=== PATIENT | female | born 1930 | race Caucasian/White ===

== ENCOUNTER 2017-01-05 18:30 | Inpatient (IN) | payer MEDICARE, OTHER ==
[~2017-01-05 18:30] MED LIST: Warfarin 2 MG Tab PO SCH
[2017-01-05] MEDS ORDERED: Albuterol/Ipratropium 3.0-0.5 MG/3 ML Neb Soln NEB ONE (19:02)
--- NOTE | 2017-01-05 19:14 | EDM.PDOC ---
ED HPI GENERAL MEDICAL PROBLEM - General Chief Complaint: General Stated Complaint: ILL Time Seen by Provider: 01/05/17 18:55 Source of Information: Reports: Patient, Family (SON AND DAUGHTER) - History of Present Illness INITIAL COMMENTS - FREE TEXT/NARRATIVE: PT DEVELOPED COUGH AND CHEST CONGESTION 2 DAYS AGO AND WAS SEEN IN [facility]. GIVEN ZPAK BUT SYMPTOMS BECOMING WORSE. DENIES CP, FEVER, N/V/D. Onset: Gradual Duration: Day(s): Location: Reports: Chest Severity: Mild Improves with: Reports: None Worsens with: Reports: None Associated Symptoms: Reports: Cough, Loss of Appetite, Shortness of Breath Treatments [employer]: Reports: IV/IO, Oxygen, See EMS Report - Related Data Allergies Allergy/AdvReac Type Severity Reaction Status Date / Time No Known Drug Allergies Allergy Cannot Verified 01/05/17 18:45 Remember Home Meds: Home Meds Citalopram Hydrobromide [Citalopram HBr] 30 mg PO DAILY 05/15/14 [History] Oxybutynin 5 mg PO BEDTIME 05/15/14 [History] Warfarin Sodium [Warfarin Sodium] 0.5 mg PO Q48H 05/15/14 [History] buPROPion HCl [Wellbutrin SR] 150 mg PO DAILY 05/15/14 [History] Acetaminophen [Tylenol] 650 mg PO Q4H PRN 09/05/15 [History] Aspirin 81 mg PO BEDTIME 09/05/15 [History] Calcium Carbonate/Vitamin D3 [Calcium 600 + Vit D3 Caplet] 1 each PO BID [History] Cholecalciferol (Vitamin D3) [Vitamin D3] 2,000 unit PO DAILY 09/05/15 [History] Docusate Sodium [Colace] 100 mg PO BEDTIME 09/05/15 [History] Multivitamin [Multivitamins] 1 each PO DAILY 09/05/15 [History] Omeprazole 20 mg PO DAILY 09/05/15 [History] Azithromycin [IJD: Azithromycin] 250 mg PO ASDIRECTED 01/05/17 [History] Lisinopril [Prinivil] 2.5 mg PO DAILY 01/05/17 [History] Metoprolol Succinate 25 mg PO DAILY 01/05/17 [History] Nortriptyline HCl [Pamelor] 100 mg PO BEDTIME 01/05/17 [History] Prednisone [IJD: predniSONE] 40 mg PO DAILY 01/05/17 [History] Warfarin Sodium [Coumadin] 4 mg PO BEDTIME 01/05/17 [History] guaiFENesin [Mucinex] 600 mg PO BID 01/05/17 [History] Past Medical History HEENT History: Reports: Impaired Vision Cardiovascular History: Reports: Afib, Hypertension Gastrointestinal History: Reports: GERD Genitourinary History: Reports: UTI, Recurrent Musculoskeletal History: Reports: Arthritis, Fracture Neurological History: Reports: Migraines Psychiatric History: Reports: Depression Hematologic History: Reports: Anticoagulation Therapy, Blood Transfusion(s) - Past Surgical History Female Surgical History: Reports: Hysterectomy, Salpingo-Oophorectomy Musculoskeletal Surgical History: Reports: Hip Replacement Social & Family History - Tobacco Use Smoking Status *Q: Never Smoker Second Hand Smoke Exposure: No - Caffeine Use Caffeine Use: Reports: Coffee, Tea Other Caffeine Use: 1-2 cups of coffee per day. diet coke not every day. iced tea - Alcohol Use Days Per Week of Alcohol Use: 0 - Recreational Drug Use Recreational Drug Use: No - Living Situation & Occupation Occupation: Retired ED ROS GENERAL - Review of Systems Review Of Systems: ROS reveals no pertinent complaints other than HPI. Constitutional: Reports: Weakness, Fatigue HEENT: Reports: No Symptoms Respiratory: Reports: Shortness of Breath, Wheezing, Cough Cardiovascular: Reports: No Symptoms Endocrine: Reports: No Symptoms GI/Abdominal: Reports: No Symptoms : Reports: No Symptoms Musculoskeletal: Reports: No Symptoms Skin: Reports: No Symptoms Neurological: Reports: No Symptoms Psychiatric: Reports: No Symptoms Hematologic/Lymphatic: Reports: No Symptoms Immunologic: Reports: No Symptoms ED EXAM, GENERAL - Physical Exam Exam: See Below Exam Limited By: No Limitations General Appearance: Alert, WD/WN, No Apparent Distress Eye Exam: Bilateral Eye: Normal Inspection Nose: Normal Inspection, Normal Mucosa, No Blood Throat/Mouth: Normal Inspection, Normal Oropharynx, Normal Voice, No Airway Compromise Head: Atraumatic, Normocephalic Neck: Normal Inspection, Supple Respiratory/Chest: No Respiratory Distress, Rales, Wheezing Cardiovascular: Regular Rate, Rhythm, No Murmur GI/Abdominal: Normal Bowel Sounds, Soft, Non-Tender Extremities: Normal Inspection, No Pedal Edema Neurological: Alert, Oriented, Normal Cognition Psychiatric: Normal Affect, Normal Mood Skin Exam: Warm, Dry, Intact, Normal Color, No Rash Course - Vital Signs Last Recorded V/S: Last Vital Signs Temp 98.6 F 01/05/17 18:42 Pulse 87 01/05/17 18:42 Resp 15 01/05/17 18:42 BP 123/59 L 01/05/17 18:42 Pulse Ox 99 01/05/17 18:42 - Orders/Labs/Meds Orders: Active Orders 24 hr Category Date Time Status Oxygen Therapy [RC] PRN Care 01/05/17 19:01 Ordered Peripheral IV Care [RC] . DIRECTED Care 01/05/17 19:02 Ordered Pulse Oximetry [RC] CONTINUOUS Care 01/05/17 19:01 Ordered RT Aerosol Therapy [RC] ASDIRECTED Care 01/05/17 19:02 Ordered Chest 2V [CR] Stat Exams 01/05/17 19:00 Ordered B-TYPE NATRIURETIC PEPTIDE,BNP [CHEM] Stat Lab 01/05/17 19:00 Ordered CBC WITH AUTO DIFF [HEME] Stat Lab 01/05/17 19:00 Ordered COMPREHENSIVE METABOLIC PN,CMP [CHEM] Stat Lab 01/05/17 19:00 Ordered UA W/MICROSCOPIC [URIN] Stat Lab 01/05/17 19:01 Uncollected Albuterol/Ipratropium [DuoNeb 3.0-0.5 MG/3 ML] Med 01/05/17 19:02 Once 3 ml NEB ONETIME ONE Sodium Chloride 0.9% [Syrex Flush] Med 01/05/17 19:00 Ordered 5 ml FLUSH Q8HR PRN Peripheral IV Insertion Adult [OM.PC] Urgent Oth 01/05/17 19:00 Ordered - Re-Assessments/Exams Free Text/Narrative Re-Assessment/Exam: 01/05/17 20:57 PT AFEBRILE, NONTOXIC APPEARING, VSS, FAMILY AT BEDSIDE. DISCUSSED CASE WITH DR VARGAS, WILL ADMIT AND FOLLOW Free Text/Narrative Re-Assessment/Exam: 01/05/17 20:58 PLEASE USE ER H&P ADMISSION H&P Departure - Departure Time of Disposition: 20:57 Disposition: Refer to Observation Condition: Fair Clinical Impression: Pneumonia - Discharge Information Referrals: Gini Hedrick MD [Primary Care Provider] - - My Orders Last 24 Hours: My Active Orders 01/05/17 19:00 Chest 2V [CR] Stat B-TYPE NATRIURETIC PEPTIDE,BNP [CHEM] Stat CBC WITH AUTO DIFF [HEME] Stat COMPREHENSIVE METABOLIC PN,CMP [CHEM] Stat Sodium Chloride 0.9% [Syrex Flush] 5 ml FLUSH Q8HR PRN Peripheral IV Insertion Adult [OM.PC] Urgent 01/05/17 19:01 Oxygen Therapy [RC] PRN Pulse Oximetry [RC] CONTINUOUS UA W/MICROSCOPIC [URIN] Stat 01/05/17 19:02 Peripheral IV Care [RC] . DIRECTED RT Aerosol Therapy [RC] ASDIRECTED Albuterol/Ipratropium [DuoNeb 3.0-0.5 MG/3 ML] 3 ml NEB ONETIME ONE - Assessment/Plan Admission H&P: Please use this note as an admission H&P Last 24 Hours: My Active Orders 01/05/17 19:00 Chest 2V [CR] Stat B-TYPE NATRIURETIC PEPTIDE,BNP [CHEM] Stat CBC WITH AUTO DIFF [HEME] Stat COMPREHENSIVE METABOLIC PN,CMP [CHEM] Stat Sodium Chloride 0.9% [Syrex Flush] 5 ml FLUSH Q8HR PRN Peripheral IV Insertion Adult [OM.PC] Urgent 01/05/17 19:01 Oxygen Therapy [RC] PRN Pulse Oximetry [RC] CONTINUOUS UA W/MICROSCOPIC [URIN] Stat 01/05/17 19:02 Peripheral IV Care [RC] . DIRECTED RT Aerosol Therapy [RC] ASDIRECTED Albuterol/Ipratropium [DuoNeb 3.0-0.5 MG/3 ML] 3 ml NEB ONETIME ONE
[2017-01-05] MEDS ORDERED: cefTRIAXone 1 GM Vial IVPUSH ONE (20:36)
[2017-01-05] MEDS ORDERED: Sodium Chloride 0.9% 5 ML Syringe FLUSH PRN (20:44)
[2017-01-05] MEDS ORDERED: Furosemide 40 MG/4 ML VIAL IVPUSH ONE (20:53)
[2017-01-05] MEDS ORDERED: AZITHROMYCIN 250 MG PO SCH (21:00)
[2017-01-05] MEDS ORDERED: WARFARIN SODIUM PO SCH (21:00)
[2017-01-05] MEDS ORDERED: Non-Formulary Medication 1 Each (Warfarin Sodium 4 MG) PO SCH (21:00)
[2017-01-05] MEDS ORDERED: NORTRIPTYLINE HCL 100 MG PO SCH (21:00)
[2017-01-05] MEDS ORDERED: Non-Formulary Medication 1 Each (Guaifenesin [Mucinex] 600 MG) PO SCH (21:00)
[2017-01-05] MEDS: Sodium Chloride 0.9% 5 ML Syringe FLUSH PRN (21:21)
[2017-01-05] MEDS: Aspirin 81 MG Tab.Chew PO SCH (21:55)
[2017-01-05] MEDS: Oxybutynin 5 MG Tab PO SCH (21:56)
[2017-01-06] MEDS: Sodium Chloride 0.9% 5 ML Syringe FLUSH PRN (07:01)
[2017-01-06] MEDS: Albuterol/Ipratropium 3.0-0.5 MG/3 ML Neb Soln NEB PRN ×3 (08:29→18:39)
[2017-01-06] MEDS ORDERED: cefTRIAXone 1 GM in Sodium Chloride 0.9% 50 ML IV SCH (09:00)
[2017-01-06] MEDS ORDERED: AZITHROMYCIN 250 MG PO SCH (09:00)
--- NOTE | 2017-01-06 09:11 | PCM.PN ---
- General Info Date of Service: 01/06/17 Admission Dx/Problem (Free Text): Pneumonia Subjective Update: Moose is seen today on observation rounds. She was admitted last evening for presumed pneumonia based on clinical exam findings, CXR was reported as negative. She and her family (daughter Margo and son Nicanor) are present this morning and offer some supplemental history. She developed SOB and cough on 12/29. She progressively got worse and saw her PCP and was started on a Z-cedrick on 01/04/17. She came to the ER last evening (01/05/17) due to worsening cough and SOB. In the ER her O2 sats were OK but she had crackles and wheezing on exam as well as a WBC of 15.5. She had been given prednisone 40 mg PO daily to take on 01/04 from her PCP but she did not take them. She has been on no prednisone. She has been afebrile. She had a UA done in the ER last night which was done by catheterization and shows some blood. She is on warfarin due to a-fib. Her daughter notes that she had fallen a few times in the past couple of days due to weakness with this illness. She did not hit her head, but when her daughter did give her a sponge bath the evening on 01/04 she noticed she had some blood in her depend she wears. This was presumably from her urine, no hx of dark tarry stool. She was given rocephin in the ER, she continued on her home azithromycin dose and was admitted for treatment of pneumonia. This morning she feels "OK". I note she looks flushed but has not been running a fever. She does endorse SOB. She has not felt thirsty or been eating much. She did get lasix 20 mg IV in the ER due to slightly elevated BNP and "wet" sounding lungs. She was not started on IVF's. She denies any pain. - Patient Data Vitals - Most Recent: Last Vital Signs Temp 97.9 F 01/06/17 07:00 Pulse 95 01/06/17 07:00 Resp 16 01/06/17 07:00 BP 112/57 L 01/06/17 07:00 Pulse Ox 92 L 01/06/17 07:00 Weight - Most Recent: 189 lb 4 oz I&O - Last 24 Hours: Intake & Output 01/05/17 01/06/17 01/06/17 22:59 06:59 14:59 Intake Total 100 50 Balance 100 50 Med Orders - Current: Current Medications Acetaminophen (Tylenol) 650 mg PO Q4H PRN PRN Reason: Pain Albuterol/Ipratropium (Duoneb 3.0-0.5 Mg/3 Ml) 3 ml NEB Q4HRRT PRN PRN Reason: Shortness of Breath Last Admin: 01/06/17 08:29 Dose: 3 ml Aspirin (Aspirin) 81 mg PO BEDTIME FERNANDA Last Admin: 01/05/17 21:55 Dose: 81 mg Bupropion HCl (Wellbutrin Sr) 150 mg PO DAILY [facility] Citalopram Hydrobromide (Celexa) 30 mg PO DAILY [facility] Docusate Sodium (Colace) 100 mg PO BEDTIME FERNANDA Guaifenesin (Mucinex) 600 mg PO BID [facility] Azithromycin 500 mg/ Sodium (Chloride) 250 mls @ 250 mls/hr IV Q24H FERNANDA Ceftriaxone Sodium 1 gm/ (Sodium Chloride) 50 mls @ 200 mls/hr IV Q24H FERNANDA Lisinopril (Prinivil) 2.5 mg PO DAILY FERNANDA Metoprolol Succinate (Toprol Xl) 25 mg PO DAILY [facility] Non-Formulary Medication (Calcium Carbonate/Vitamin D3 [Calcium 600-Vit D3 800 Caplet]) 1 each PO BID [facility] Non-Formulary Medication (Cholecalciferol (Vitamin D3) [Vitamin D3]) 2,000 unit PO DAILY [facility] Non-Formulary Medication (Multivitamin [Multivitamins]) 1 each PO DAILY [facility] Non-Formulary Medication (Omeprazole [Omeprazole]) 20 mg PO DAILY [facility] Nortriptyline HCl (Nortriptyline) 100 mg PO BEDTIME FERNANDA Oxybutynin Chloride (Oxybutynin) 5 mg PO BEDTIME [facility] Last Admin: 01/05/17 21:56 Dose: 5 mg Ptom Azithromycin 250 Mg Tab 1 each PO DAILY FERNANDA Stop: 01/08/17 09:01 Prednisone (Prednisone) 40 mg PO DAILY [facility] Sodium Chloride (Syrex Flush) 5 ml FLUSH Q8HR PRN PRN Reason: Keep Vein Open Last Admin: 01/06/17 07:01 Dose: 5 ml Warfarin Sodium (Coumadin) 4 mg PO DAILY@1800 FERNANDA Warfarin Sodium (Coumadin) 0.5 mg PO Q48H [facility] Discontinued Medications Albuterol/Ipratropium (Duoneb 3.0-0.5 Mg/3 Ml) 3 ml NEB ONETIME ONE Stop: 01/05/17 19:03 Last Admin: 01/05/17 19:10 Dose: 3 ml Ceftriaxone Sodium (Rocephin) 1 gm IVPUSH ONETIME ONE Stop: 01/05/17 20:37 Last Admin: 01/05/17 21:10 Dose: 1 gm Furosemide (Lasix) 20 mg IVPUSH NOW ONE Stop: 01/05/17 20:54 Last Admin: 01/05/17 21:10 Dose: 20 mg Non-Formulary Medication (Azithromycin [Ijd: Azithromycin]) 250 mg PO ASDIRECTED [facility] Non-Formulary Medication (Guaifenesin [Mucinex]) 600 mg PO BID [facility] Last Admin: 01/05/17 21:55 Dose: Not Given Non-Formulary Medication (Nortriptyline Hcl [Pamelor]) 100 mg PO BEDTIME [facility] Last Admin: 01/05/17 21:56 Dose: Not Given Non-Formulary Medication (Warfarin Sodium) 4 mg PO BEDTIME [facility] Last Admin: 01/05/17 21:57 Dose: 4 mg Non-Formulary Medication (Warfarin Sodium) 0.5 mg PO Q48H [facility] Last Admin: 01/05/17 21:57 Dose: 0.5 mg Sodium Chloride (Syrex Flush) 5 ml FLUSH Q8HR PRN PRN Reason: Keep Vein Open - Exam General: Alert, Oriented, Cooperative, No Acute Distress Lungs: Crackles, Wheezing Cardiovascular: Irregular Rhythm, Murmurs (2/6 systolic murmur heard best at the RUSB.) GI/Abdominal Exam: Normal Bowel Sounds, Soft, Non-Tender, No Organomegaly Back Exam: Normal Inspection Extremities: No Pedal Edema - Problem List & Annotations (1) Atrial fibrillation SNOMED Code(s): 47842364 Code(s): I48.91 - UNSPECIFIED ATRIAL FIBRILLATION Status: Acute Current Visit: Yes (2) Pneumonia SNOMED Code(s): 095754919 Code(s): J18.9 - PNEUMONIA, UNSPECIFIED ORGANISM Status: Acute Current Visit: Yes (3) CHF (congestive heart failure) SNOMED Code(s): 67053346 Code(s): I50.9 - HEART FAILURE, UNSPECIFIED Status: Chronic Current Visit : No Qualifiers: Congestive heart failure type: unspecified congestive heart failure type Congestive heart failure chronicity: unspecified congestive heart failure chronicity Qualified Code(s): I50.9 - Heart failure, unspecified (4) Depression SNOMED Code(s): 12827166 Code(s): F32.9 - MAJOR DEPRESSIVE DISORDER, SINGLE EPISODE, UNSPECIFIED Status: Acute Current Visit: Yes (5) Hypertension SNOMED Code(s): 91307670 Code(s): I10 - ESSENTIAL (PRIMARY) HYPERTENSION Status: Acute Current Visit: Yes (6) Overactive bladder SNOMED Code(s): 394393520 Code(s): N32.81 - OVERACTIVE BLADDER Status: Acute Current Visit: Yes - Problem List Review Problem List Initiated/Reviewed/Updated: Yes - My Orders Last 24 Hours: My Active Orders 01/05/17 22:37 Albuterol/Ipratropium [DuoNeb 3.0-0.5 MG/3 ML] 3 ml NEB Q4HRRT PRN 01/05/17 22:38 RT Aerosol Therapy [RC] ASDIRECTED 01/06/17 08:25 B-TYPE NATRIURETIC PEPTIDE,BNP [CHEM] Routine BASIC METABOLIC PANEL,BMP [CHEM] Routine CBC WITH AUTO DIFF [HEME] Routine 01/06/17 08:35 Acetaminophen [Tylenol] 650 mg PO Q4H PRN 01/06/17 08:52 Patient Status [ADT] Routine 01/06/17 08:54 CULTURE BLOOD [BC] Stat CULTURE BLOOD [BC] Stat INR,PT,PROTHROMBIN TIME [COAG] Routine Blood Culture x2 Reflex Set [OM.PC] Stat 01/06/17 09:00 Azithromycin [Zithromax] 500 mg Sodium Chloride 0.9% [Normal Saline] 250 ml IV Q24H Calcium Carbonate/Vitamin D3 [Calcium 600-Vit D3 800 Caplet] 1 each PO BID Cholecalciferol (Vitamin D3) [Vitamin D3] 2,000 unit PO DAILY Multivitamin [Multivitamins] 1 each PO DAILY Omeprazole [Omeprazole] 20 mg PO DAILY cefTRIAXone [Rocephin] 1 gm Sodium Chloride 0.9% [Normal Saline] 50 ml IV Q24H predniSONE 40 mg PO DAILY 01/06/17 21:00 Docusate Sodium [Colace] 100 mg PO BEDTIME - Assessment Assessment:: Pneumonia CHF Atrial fibrillation, on warfarin Hematuria HTN OAB Depression - Plan Plan:: Pneumonia. Azithromycin 500 mg IV daily as well as ceftriaxone 1 gram IV daily. Will use nebs and also start the prednisone 40 mg PO daily x 5 days. Blood cultures not obtained in ED and so those will be done today. Will also get daily CBC and BMP. CHF. She got lasix in the ER, will check BNP today. Additional lasix PRN. Atrial fibrillation, on warfarin. Continue warfarin. INR today. Hematuria. Will monitor, could be due to fall as well as catheterization. If not improving will need outpatient follow-up. HTN. Continue home meds. OAB. Continue home meds. Depression. Continue home meds.
[2017-01-06] MEDS: buPROPion 150 MG Tab.SR PO SCH (09:29)
[2017-01-06] MEDS: Citalopram 20 MG Tab PO SCH (09:29)
[2017-01-06] MEDS: Lisinopril 5 MG Tab PO SCH (09:33)
[2017-01-06] MEDS: Metoprolol Succinate 25 MG Tab.ER PO SCH (09:33)
[2017-01-06] MEDS: guaiFENesin 600 MG Tab.ER PO SCH ×2 (10:10→21:06)
[2017-01-06] MEDS: Cholecalciferol (Vitamin D3) 1,000 Unit Tab PO SCH (10:11)
[2017-01-06] MEDS: PREDNISONE 20 MG PO SCH (10:11)
[2017-01-06] MEDS: Calcium Citrate/Vitamin D3 315 MG-250 Unit Tab PO SCH ×2 (10:11→18:19)
[2017-01-06] MEDS: Azithromycin 500 MG in Sodium Chloride 0.9% 250 ML IV SCH (10:11)
[2017-01-06] MEDS: Multivitamins with Minerals/Iron/Folic Acid/Lycopene Tab PO SCH (10:11)
[2017-01-06] MEDS: Sodium Chloride 0.9% 50 ML IV SCH (10:20)
[2017-01-06] MEDS: Omeprazole 20 MG Cap.CR PO SCH (11:07)
[2017-01-06] MEDS: Acetaminophen 325 MG Tab PO PRN (13:25)
[2017-01-06] MEDS: cefTRIAXone 1 GM Vial IVPUSH SCH (21:04)
[2017-01-06] MEDS: Aspirin 81 MG Tab.Chew PO SCH (21:05)
[2017-01-06] MEDS: Donepezil 10 MG Tab PO SCH (21:05)
[2017-01-06] MEDS: Docusate Sodium 100 MG Cap PO SCH (21:06)
[2017-01-06] MEDS: NORTRIPTYLINE 50 MG PO SCH (21:07)
[2017-01-06] MEDS: Oxybutynin 5 MG Tab PO SCH (21:07)
[2017-01-07] MEDS: Calcium Citrate/Vitamin D3 315 MG-250 Unit Tab PO SCH ×2 (08:51→18:36)
[2017-01-07] MEDS: Omeprazole 20 MG Cap.CR PO SCH (08:51)
[2017-01-07] MEDS: PREDNISONE 20 MG PO SCH (08:51)
[2017-01-07] MEDS: Citalopram 20 MG Tab PO SCH (08:52)
[2017-01-07] MEDS: Multivitamins with Minerals/Iron/Folic Acid/Lycopene Tab PO SCH (08:54)
[2017-01-07] MEDS: Cholecalciferol (Vitamin D3) 1,000 Unit Tab PO SCH (08:56)
[2017-01-07] MEDS: buPROPion 150 MG Tab.SR PO SCH (08:56)
[2017-01-07] MEDS: Lisinopril 5 MG Tab PO SCH (08:58)
[2017-01-07] MEDS: guaiFENesin 600 MG Tab.ER PO SCH ×2 (09:01→20:11)
[2017-01-07] MEDS: Sodium Chloride 0.9% 50 ML IV SCH (09:26)
[2017-01-07] MEDS: Azithromycin 500 MG in Sodium Chloride 0.9% 250 ML IV SCH (09:26)
--- NOTE | 2017-01-07 09:47 | PCM.PN ---
- General Info Date of Service: 01/07/17 Admission Dx/Problem (Free Text): Pneumonia - Review of Systems Systems Review Comment:: Moose is seen today on inpatient rounds. She was admitted on 01/05/17 with probable pneumonia based on clinical exam findings, CXR was negative. She had an elevated WBC with cough, wheezing and rales on examination. She was started in the hospital on ceftriaxone and azithromycin IV. She states today she feels quite a bit better. VSS, afebrile. She has no concerns today, no concerns noted by nursing staff. - Patient Data Vitals - Most Recent: Last Vital Signs Temp 97.2 F 01/07/17 06:33 Pulse 80 01/07/17 06:33 Resp 20 01/07/17 06:33 BP 99/59 L 01/07/17 08:58 Pulse Ox 97 01/07/17 06:33 Weight - Most Recent: 189 lb 4 oz I&O - Last 24 Hours: Intake & Output 01/06/17 01/07/17 01/07/17 22:59 06:59 14:59 Intake Total 50 0 Balance 50 0 Lab Results Last 24 Hours: Laboratory Results - last 24 hr 01/06/17 01/06/17 01/07/17 Range/Units 09:00 10:00 07:04 WBC 7.5 (5.0-10.0) 10^3/uL RBC 3.55 L (3.80-5.50) 10^6/uL Hgb 10.3 L (12.0-16.0) g/dL Hct 31.0 L (37.0-47.0) % MCV 87.3 (82.0-92.0) fL MCH 29.1 (27.0-31.0) pg MCHC 33.3 (32.0-36.0) g/dL RDW 12.4 (11.5-14.5) % Plt Count 193 (150-300) 10^3/uL MPV 7.7 (7.4-10.4) fL Neut % (Auto) 78.1 H (50.0-70.0) % Lymph % (Auto) 15.9 L (20.0-40.0) % [place] % (Auto) 5.1 (2.0-8.0) % Eos % (Auto) 0.6 L (1.0-3.0) % Baso % (Auto) 0.3 (0.0-1.0) % Neut # (Auto) 5.9 (2.5-7.0) 10^3/uL Lymph # (Auto) 1.2 (1.0-4.0) 10^3/uL [place] # (Auto) 0.4 (0.1-0.8) 10^3/uL Eos # (Auto) 0.0 L (0.1-0.3) 10^3/uL Baso # (Auto) 0.0 (0.0-0.1) 10^3/uL PT 53.5 H (8.9-11.4) SEC INR 4.9 H* (0.9-1.1) Sodium 138 (136-145) mmol/L Potassium 4.4 (3.3-5.3) mmol/L Chloride 102 (98-115) mmol/L Carbon Dioxide 24.5 (21.0-32.0) mmol/L BUN 24 (6-25) mg/dL Creatinine 1.58 H (0.51-1.17) mg/dL Est Cr Clr Drug Dosing 26.74 mL/min Estimated GFR (MDRD) 31 mL/min Glucose 143 H (70-110) mg/dL Calcium 8.4 L (8.7-10.3) mg/dL B-Natriuretic Peptide 141 H (0-100) pg/mL 01/07/17 Range/Units 07:04 WBC (5.0-10.0) 10^3/uL RBC (3.80-5.50) 10^6/uL Hgb (12.0-16.0) g/dL Hct (37.0-47.0) % MCV (82.0-92.0) fL MCH (27.0-31.0) pg MCHC (32.0-36.0) g/dL RDW (11.5-14.5) % Plt Count (150-300) 10^3/uL MPV (7.4-10.4) fL Neut % (Auto) (50.0-70.0) % Lymph % (Auto) (20.0-40.0) % [place] % (Auto) (2.0-8.0) % Eos % (Auto) (1.0-3.0) % Baso % (Auto) (0.0-1.0) % Neut # (Auto) (2.5-7.0) 10^3/uL Lymph # (Auto) (1.0-4.0) 10^3/uL [place] # (Auto) (0.1-0.8) 10^3/uL Eos # (Auto) (0.1-0.3) 10^3/uL Baso # (Auto) (0.0-0.1) 10^3/uL PT (8.9-11.4) SEC INR (0.9-1.1) Sodium 136 (136-145) mmol/L Potassium 4.4 (3.3-5.3) mmol/L Chloride 102 (98-115) mmol/L Carbon Dioxide 24.3 (21.0-32.0) mmol/L BUN 23 (6-25) mg/dL Creatinine 1.23 H (0.51-1.17) mg/dL Est Cr Clr Drug Dosing 34.35 mL/min Estimated GFR (MDRD) 42 mL/min Glucose 101 (70-110) mg/dL Calcium 8.6 L (8.7-10.3) mg/dL B-Natriuretic Peptide (0-100) pg/mL Med Orders - Current: Current Medications Acetaminophen (Tylenol) 650 mg PO Q4H PRN PRN Reason: Pain Last Admin: 01/06/17 13:25 Dose: 650 mg Albuterol/Ipratropium (Duoneb 3.0-0.5 Mg/3 Ml) 3 ml NEB Q4HRRT PRN PRN Reason: Shortness of Breath Last Admin: 01/06/17 18:39 Dose: 3 ml Aspirin (Aspirin) 81 mg PO BEDTIME [facility] Last Admin: 01/06/17 21:05 Dose: 81 mg Bupropion HCl (Wellbutrin Sr) 150 mg PO DAILY [facility] Last Admin: 01/07/17 08:56 Dose: 150 mg Calcium Citrate (Calcium Citrate + D) 1 tab PO BIDMEALS [facility] Last Admin: 01/07/17 08:51 Dose: 1 tab Ceftriaxone Sodium (Rocephin) 1 gm IVPUSH Q24H [facility] Last Admin: 01/06/17 21:04 Dose: 1 gm Cholecalciferol (Vitamin D3) 2,000 units PO DAILY [facility] Last Admin: 01/07/17 08:56 Dose: 2,000 units Citalopram Hydrobromide (Celexa) 30 mg PO DAILY [facility] Last Admin: 01/07/17 08:52 Dose: 30 mg Docusate Sodium (Colace) 100 mg PO BEDTIME [facility] Last Admin: 01/06/17 21:06 Dose: 100 mg Donepezil HCl (Aricept) 10 mg PO BEDTIME [facility] Last Admin: 01/06/17 21:05 Dose: 10 mg Guaifenesin (Mucinex) 600 mg PO BID [facility] Last Admin: 01/07/17 09:01 Dose: 600 mg Azithromycin 500 mg/ Sodium (Chloride) 255 mls @ 255 mls/hr IV Q24H [facility] Last Admin: 01/07/17 09:26 Dose: 255 mls/hr Sodium Chloride (Normal Saline) 50 mls @ 20 mls/hr IV DAILY [facility] Last Admin: 01/07/17 09:26 Dose: 20 mls/hr Lisinopril (Prinivil) 2.5 mg PO DAILY [facility] Last Admin: 01/07/17 08:58 Dose: 2.5 mg Metoprolol Succinate (Toprol Xl) 25 mg PO DAILY [facility] Last Admin: 01/06/17 09:33 Dose: 25 mg Multivitamins/Minerals (Centrum) 1 tab PO DAILY [facility] Last Admin: 01/07/17 08:54 Dose: 1 tab Omeprazole (Omeprazole) 20 mg PO ACBREAKFAST [facility] Last Admin: 01/07/17 08:51 Dose: 20 mg Oxybutynin Chloride (Oxybutynin) 5 mg PO BEDTIME [facility] Last Admin: 01/06/17 21:07 Dose: 5 mg Ptom Nortriptyline 50 Mg Cap 2 each PO BEDTIME [facility] Last Admin: 01/06/17 21:07 Dose: 2 each Ptom Prednisone (20 Mg Tab) 2 each PO WITHBREAKFAST [facility] Stop: 01/10/17 10:01 Last Admin: 01/07/17 08:51 Dose: 2 each Sodium Chloride (Syrex Flush) 5 ml FLUSH Q8HR PRN PRN Reason: Keep Vein Open Last Admin: 01/06/17 07:01 Dose: 5 ml Warfarin Sodium (Coumadin) 4 mg PO DAILY@1800 [facility] Last Admin: 01/06/17 09:15 Dose: Not Given Warfarin Sodium (Coumadin) 0.5 mg PO Q48H [facility] Last Admin: 01/06/17 09:15 Dose: Not Given Warfarin Sodium (Pharmacy To Dose - Warfarin) 0 dose PO ASDIRECTED [facility] Discontinued Medications Albuterol/Ipratropium (Duoneb 3.0-0.5 Mg/3 Ml) 3 ml NEB ONETIME ONE Stop: 01/05/17 19:03 Last Admin: 01/05/17 19:10 Dose: 3 ml Ceftriaxone Sodium (Rocephin) 1 gm IVPUSH ONETIME ONE Stop: 01/05/17 20:37 Last Admin: 01/05/17 21:10 Dose: 1 gm Furosemide (Lasix) 20 mg IVPUSH NOW ONE Stop: 01/05/17 20:54 Last Admin: 01/05/17 21:10 Dose: 20 mg Non-Formulary Medication (Azithromycin [Ijd: Azithromycin]) 250 mg PO ASDIRECTED [facility] Non-Formulary Medication (Guaifenesin [Mucinex]) 600 mg PO BID [facility] Last Admin: 01/05/17 21:55 Dose: Not Given Non-Formulary Medication (Nortriptyline Hcl [Pamelor]) 100 mg PO BEDTIME [facility] Last Admin: 01/05/17 21:56 Dose: Not Given Non-Formulary Medication (Warfarin Sodium) 4 mg PO BEDTIME [facility] Last Admin: 01/05/17 21:57 Dose: 4 mg Non-Formulary Medication (Warfarin Sodium) 0.5 mg PO Q48H [facility] Last Admin: 01/05/17 21:57 Dose: 0.5 mg Ptom Azithromycin 250 Mg Tab 1 each PO DAILY [facility] Stop: 01/08/17 09:01 Last Admin: 01/06/17 10:18 Dose: Not Given Sodium Chloride (Syrex Flush) 5 ml FLUSH Q8HR PRN PRN Reason: Keep Vein Open - Exam General: Alert, Oriented, Cooperative, No Acute Distress Lungs: Crackles (Bibasilar crackles, wheezing has improved and is absent today.) Cardiovascular: Irregular Rhythm, Murmurs GI/Abdominal Exam: Normal Bowel Sounds Extremities: No Pedal Edema - Problem List & Annotations (1) Atrial fibrillation SNOMED Code(s): 15044119 Code(s): I48.91 - UNSPECIFIED ATRIAL FIBRILLATION Status: Acute Current Visit: Yes (2) Pneumonia SNOMED Code(s): 424282487 Code(s): J18.9 - PNEUMONIA, UNSPECIFIED ORGANISM Status: Acute Current Visit: Yes (3) CHF (congestive heart failure) SNOMED Code(s): 87160628 Code(s): I50.9 - HEART FAILURE, UNSPECIFIED Status: Chronic Current Visit : No Qualifiers: Congestive heart failure type: unspecified congestive heart failure type Congestive heart failure chronicity: unspecified congestive heart failure chronicity Qualified Code(s): I50.9 - Heart failure, unspecified (4) Depression SNOMED Code(s): 37502738 Code(s): F32.9 - MAJOR DEPRESSIVE DISORDER, SINGLE EPISODE, UNSPECIFIED Status: Acute Current Visit: Yes (5) Hypertension SNOMED Code(s): 87402482 Code(s): I10 - ESSENTIAL (PRIMARY) HYPERTENSION Status: Acute Current Visit: Yes (6) Overactive bladder SNOMED Code(s): 622676525 Code(s): N32.81 - OVERACTIVE BLADDER Status: Acute Current Visit: Yes - Problem List Review Problem List Initiated/Reviewed/Updated: Yes - My Orders Last 24 Hours: My Active Orders 01/06/17 08:52 Patient Status [ADT] Routine 01/06/17 08:54 Blood Culture x2 Reflex Set [OM.PC] Stat 01/06/17 09:00 Azithromycin [Zithromax] 500 mg Sodium Chloride 0.9% [Normal Saline] 250 ml IV Q24H Sodium Chloride 0.9% [Normal Saline] 50 ml IV DAILY 01/06/17 09:45 CULTURE BLOOD [BC] Stat 01/06/17 10:00 CULTURE BLOOD [BC] Stat 01/06/17 11:30 Warfarin Pharmacy to Dose [Pharmacy to Dose - Warfarin] 0 dose PO ASDIRECTED 01/06/17 20:00 cefTRIAXone [Rocephin] 1 gm IVPUSH Q24H 01/06/17 21:00 Donepezil [Aricept] 10 mg PO BEDTIME 01/08/17 05:11 BMP [BASIC METABOLIC PANEL,BMP] [CHEM] AM CBC WITH AUTO DIFF [HEME] AM 01/08/17 06:00 INR,PT,PROTHROMBIN TIME [COAG] Routine 01/09/17 05:11 BMP [BASIC METABOLIC PANEL,BMP] [CHEM] AM CBC WITH AUTO DIFF [HEME] AM 01/10/17 05:11 BMP [BASIC METABOLIC PANEL,BMP] [CHEM] AM CBC WITH AUTO DIFF [HEME] AM 01/11/17 05:11 BMP [BASIC METABOLIC PANEL,BMP] [CHEM] AM CBC WITH AUTO DIFF [HEME] AM - Assessment Assessment:: Pneumonia CHF Atrial fibrillation, on warfarin Hematuria HTN OAB Depression - Plan Plan:: Pneumonia. Azithromycin 500 mg IV daily as well as ceftriaxone 1 gram IV daily. Will use nebs and also start the prednisone 40 mg PO daily x 5 days. Will also get daily CBC and BMP. CHF. She got lasix in the ER. Additional lasix PRN. Atrial fibrillation, on warfarin. This is being held due to supratherapeutic INR. Pharmacy dosing warfarin. Hematuria. Will monitor, could be due to fall as well as catheterization. If not improving will need outpatient follow-up. HTN. Continue home meds. OAB. Continue home meds. Depression. Continue home meds.
[2017-01-07] MEDS: Metoprolol Succinate 25 MG Tab.ER PO SCH (12:45)
[2017-01-07] MEDS: cefTRIAXone 1 GM Vial IVPUSH SCH (20:11)
[2017-01-07] MEDS: Donepezil 10 MG Tab PO SCH (21:34)
[2017-01-07] MEDS: Aspirin 81 MG Tab.Chew PO SCH (21:34)
[2017-01-07] MEDS: Docusate Sodium 100 MG Cap PO SCH (21:35)
[2017-01-07] MEDS: Oxybutynin 5 MG Tab PO SCH (21:35)
[2017-01-07] MEDS: NORTRIPTYLINE 50 MG PO SCH (21:36)
[2017-01-07] MEDS: Sodium Chloride 0.9% 5 ML Syringe FLUSH PRN (21:37)
[2017-01-07] MEDS ORDERED: Magnesium Hydroxide 400 MG/5 ML Susp 30 ML Cup PO PRN (21:43)
[2017-01-08] MEDS: Omeprazole 20 MG Cap.CR PO SCH (08:03)
[2017-01-08] MEDS: Calcium Citrate/Vitamin D3 315 MG-250 Unit Tab PO SCH ×2 (08:03→18:02)
[2017-01-08] MEDS: PREDNISONE 20 MG PO SCH (08:04)
[2017-01-08] MEDS: Azithromycin 500 MG in Sodium Chloride 0.9% 250 ML IV SCH (08:55)
[2017-01-08] MEDS: Sodium Chloride 0.9% 50 ML IV SCH (08:55)
[2017-01-08] MEDS: Citalopram 20 MG Tab PO SCH (09:05)
[2017-01-08] MEDS: guaiFENesin 600 MG Tab.ER PO SCH ×2 (09:05→20:09)
[2017-01-08] MEDS: Multivitamins with Minerals/Iron/Folic Acid/Lycopene Tab PO SCH (09:06)
[2017-01-08] MEDS: Cholecalciferol (Vitamin D3) 1,000 Unit Tab PO SCH (09:06)
[2017-01-08] MEDS: Metoprolol Succinate 25 MG Tab.ER PO SCH (09:07)
[2017-01-08] MEDS: Lisinopril 5 MG Tab PO SCH (09:07)
[2017-01-08] MEDS: buPROPion 150 MG Tab.SR PO SCH (09:08)
--- NOTE | 2017-01-08 14:19 | PCM.PN ---
- General Info Date of Service: 01/08/17 Admission Dx/Problem (Free Text): Pneumonia - Review of Systems Systems Review Comment:: Moose is seen today on inpatient rounds. She was admitted for presumed pneumonia based on physical exam findings and symptoms. CXR was negative. She has had a bowel movement this morning per nursing, Moose did not remember if she had had one yet since admission. Her appetite is returning. She denies any pain. No SOB, She has a cough but it is not something she is requiring medication for. I do note that her hemoglobin has dropped nearly 3 points since admission. She denies blood in the stool of hematuria. She did have blood in her urine at presentation but this has not recurred. She has no vomiting. Her INR was supratherapeutic at admission of 4.9 but was 3.2 today. Warfarin has been held for 3 days. - Patient Data Vitals - Most Recent: Last Vital Signs Temp 98.2 F 01/08/17 11:00 Pulse 92 01/08/17 11:00 Resp 18 01/08/17 11:00 BP 127/69 01/08/17 11:00 Pulse Ox 96 01/08/17 11:00 Weight - Most Recent: 189 lb 4 oz I&O - Last 24 Hours: Intake & Output 01/07/17 01/08/17 01/08/17 22:59 06:59 14:59 Intake Total 650 250 420 Output Total 200 800 Balance 450 -550 420 Lab Results Last 24 Hours: Laboratory Results - last 24 hr 01/08/17 01/08/17 01/08/17 Range/Units 07:10 07:10 07:10 WBC 8.0 (5.0-10.0) 10^3/uL RBC 3.32 L (3.80-5.50) 10^6/uL Hgb 9.7 L (12.0-16.0) g/dL Hct 28.9 L (37.0-47.0) % MCV 87.0 (82.0-92.0) fL MCH 29.1 (27.0-31.0) pg MCHC 33.4 (32.0-36.0) g/dL RDW 12.0 (11.5-14.5) % Plt Count 269 (150-300) 10^3/uL MPV 7.8 (7.4-10.4) fL Neut % (Auto) 71.8 H (50.0-70.0) % Lymph % (Auto) 20.6 (20.0-40.0) % [place] % (Auto) 7.2 (2.0-8.0) % Eos % (Auto) 0.4 L (1.0-3.0) % Baso % (Auto) 0.0 (0.0-1.0) % Neut # (Auto) 5.8 (2.5-7.0) 10^3/uL Lymph # (Auto) 1.6 (1.0-4.0) 10^3/uL [place] # (Auto) 0.6 (0.1-0.8) 10^3/uL Eos # (Auto) 0.0 L (0.1-0.3) 10^3/uL Baso # (Auto) 0.0 (0.0-0.1) 10^3/uL PT 33.6 H (8.9-11.4) SEC INR 3.2 H (0.9-1.1) Sodium 135 L (136-145) mmol/L Potassium 4.3 (3.3-5.3) mmol/L Chloride 101 (98-115) mmol/L Carbon Dioxide 25.9 (21.0-32.0) mmol/L BUN 22 (6-25) mg/dL Creatinine 1.24 H (0.51-1.17) mg/dL Est Cr Clr Drug Dosing 34.07 mL/min Estimated GFR (MDRD) 41 mL/min Glucose 80 (70-110) mg/dL Calcium 8.4 L (8.7-10.3) mg/dL Phani Results Last 24 Hours: Microbiology 01/06/17 10:00 Aerobic Blood Culture - Preliminary Blood - Venous - Lab Draw NO GROWTH AFTER 2 DAYS Anaerobic Blood Culture - Preliminary NO GROWTH AFTER 2 DAYS 01/06/17 09:45 Aerobic Blood Culture - Preliminary Blood - Venous NO GROWTH AFTER 2 DAYS Anaerobic Blood Culture - Preliminary NO GROWTH AFTER 2 DAYS Med Orders - Current: Current Medications Acetaminophen (Tylenol) 650 mg PO Q4H PRN PRN Reason: Pain Last Admin: 01/06/17 13:25 Dose: 650 mg Albuterol/Ipratropium (Duoneb 3.0-0.5 Mg/3 Ml) 3 ml NEB Q4HRRT PRN PRN Reason: Shortness of Breath Last Admin: 01/06/17 18:39 Dose: 3 ml Aspirin (Aspirin) 81 mg PO BEDTIME [facility] Last Admin: 01/07/17 21:34 Dose: 81 mg Bupropion HCl (Wellbutrin Sr) 150 mg PO DAILY [facility] Last Admin: 01/08/17 09:08 Dose: 150 mg Calcium Citrate (Calcium Citrate + D) 1 tab PO BIDMEALS [facility] Last Admin: 01/08/17 08:03 Dose: 1 tab Ceftriaxone Sodium (Rocephin) 1 gm IVPUSH Q24H [facility] Last Admin: 01/07/17 20:11 Dose: 1 gm Cholecalciferol (Vitamin D3) 2,000 units PO DAILY [facility] Last Admin: 01/08/17 09:06 Dose: 2,000 units Citalopram Hydrobromide (Celexa) 30 mg PO DAILY [facility] Last Admin: 01/08/17 09:05 Dose: 30 mg Docusate Sodium (Colace) 100 mg PO BEDTIME [facility] Last Admin: 01/07/17 21:35 Dose: 100 mg Donepezil HCl (Aricept) 10 mg PO BEDTIME [facility] Last Admin: 01/07/17 21:34 Dose: 10 mg Guaifenesin (Mucinex) 600 mg PO BID [facility] Last Admin: 01/08/17 09:05 Dose: 600 mg Azithromycin 500 mg/ Sodium (Chloride) 255 mls @ 255 mls/hr IV Q24H [facility] Last Admin: 01/08/17 08:55 Dose: 255 mls/hr Sodium Chloride (Normal Saline) 50 mls @ 20 mls/hr IV DAILY [facility] Last Admin: 01/08/17 08:55 Dose: 20 mls/hr Lisinopril (Prinivil) 2.5 mg PO DAILY [facility] Last Admin: 01/08/17 09:07 Dose: 2.5 mg Magnesium Hydroxide (Milk Of Magnesia) 30 ml PO DAILY PRN PRN Reason: Constipation Last Admin: 01/07/17 22:04 Dose: 30 ml Metoprolol Succinate (Toprol Xl) 25 mg PO DAILY [facility] Last Admin: 01/08/17 09:07 Dose: 25 mg Multivitamins/Minerals (Centrum) 1 tab PO DAILY [facility] Last Admin: 01/08/17 09:06 Dose: 1 tab Omeprazole (Omeprazole) 20 mg PO ACBREAKFAST [facility] Last Admin: 01/08/17 08:03 Dose: 20 mg Oxybutynin Chloride (Oxybutynin) 5 mg PO BEDTIME [facility] Last Admin: 01/07/17 21:35 Dose: 5 mg Ptom Nortriptyline 50 Mg Cap 2 each PO BEDTIME [facility] Last Admin: 01/07/17 21:36 Dose: 2 each Ptom Prednisone (20 Mg Tab) 2 each PO WITHBREAKFAST [facility] Stop: 01/10/17 10:01 Last Admin: 01/08/17 08:04 Dose: 2 each Sodium Chloride (Syrex Flush) 5 ml FLUSH Q8HR PRN PRN Reason: Keep Vein Open Last Admin: 01/07/17 21:37 Dose: 5 ml Warfarin Sodium (Coumadin) 4 mg PO DAILY@1800 [facility] Last Admin: 01/06/17 09:15 Dose: Not Given Warfarin Sodium (Coumadin) 0.5 mg PO Q48H [facility] Last Admin: 01/06/17 09:15 Dose: Not Given Warfarin Sodium (Pharmacy To Dose - Warfarin) 0 dose PO ASDIRECTED [facility] Discontinued Medications Albuterol/Ipratropium (Duoneb 3.0-0.5 Mg/3 Ml) 3 ml NEB ONETIME ONE Stop: 01/05/17 19:03 Last Admin: 01/05/17 19:10 Dose: 3 ml Ceftriaxone Sodium (Rocephin) 1 gm IVPUSH ONETIME ONE Stop: 01/05/17 20:37 Last Admin: 01/05/17 21:10 Dose: 1 gm Furosemide (Lasix) 20 mg IVPUSH NOW ONE Stop: 01/05/17 20:54 Last Admin: 01/05/17 21:10 Dose: 20 mg Non-Formulary Medication (Azithromycin [Ijd: Azithromycin]) 250 mg PO ASDIRECTED [facility] Non-Formulary Medication (Guaifenesin [Mucinex]) 600 mg PO BID [facility] Last Admin: 01/05/17 21:55 Dose: Not Given Non-Formulary Medication (Nortriptyline Hcl [Pamelor]) 100 mg PO BEDTIME [facility] Last Admin: 01/05/17 21:56 Dose: Not Given Non-Formulary Medication (Warfarin Sodium) 4 mg PO BEDTIME [facility] Last Admin: 01/05/17 21:57 Dose: 4 mg Non-Formulary Medication (Warfarin Sodium) 0.5 mg PO Q48H [facility] Last Admin: 01/05/17 21:57 Dose: 0.5 mg Ptom Azithromycin 250 Mg Tab 1 each PO DAILY [facility] Stop: 01/08/17 09:01 Last Admin: 01/06/17 10:18 Dose: Not Given Sodium Chloride (Syrex Flush) 5 ml FLUSH Q8HR PRN PRN Reason: Keep Vein Open - Exam General: Alert, Oriented, Cooperative, No Acute Distress Lungs: Clear to Auscultation, Normal Respiratory Effort Cardiovascular: Irregular Rhythm, Murmurs GI/Abdominal Exam: Normal Bowel Sounds Extremities: No Pedal Edema - Problem List & Annotations (1) Atrial fibrillation SNOMED Code(s): 57946329 Code(s): I48.91 - UNSPECIFIED ATRIAL FIBRILLATION Status: Acute Current Visit: Yes (2) Pneumonia SNOMED Code(s): 829771056 Code(s): J18.9 - PNEUMONIA, UNSPECIFIED ORGANISM Status: Acute Current Visit: Yes (3) CHF (congestive heart failure) SNOMED Code(s): 30734899 Code(s): I50.9 - HEART FAILURE, UNSPECIFIED Status: Chronic Current Visit : No Qualifiers: Congestive heart failure type: unspecified congestive heart failure type Congestive heart failure chronicity: unspecified congestive heart failure chronicity Qualified Code(s): I50.9 - Heart failure, unspecified (4) Depression SNOMED Code(s): 49985622 Code(s): F32.9 - MAJOR DEPRESSIVE DISORDER, SINGLE EPISODE, UNSPECIFIED Status: Acute Current Visit: Yes (5) Hypertension SNOMED Code(s): 32020822 Code(s): I10 - ESSENTIAL (PRIMARY) HYPERTENSION Status: Acute Current Visit: Yes (6) Overactive bladder SNOMED Code(s): 582276586 Code(s): N32.81 - OVERACTIVE BLADDER Status: Acute Current Visit: Yes - Problem List Review Problem List Initiated/Reviewed/Updated: Yes - My Orders Last 24 Hours: My Active Orders 01/07/17 21:43 Magnesium Hydroxide [Milk of Magnesia] 30 ml PO DAILY PRN 01/08/17 13:18 OCCULT BLOOD SCREEN [OP] Routine UA W/MICROSCOPIC [URIN] Routine 01/08/17 21:00 Docusate Sodium [Colace] 100 mg PO BID 01/09/17 05:11 BMP [BASIC METABOLIC PANEL,BMP] [CHEM] AM CBC WITH AUTO DIFF [HEME] AM 01/10/17 05:11 BMP [BASIC METABOLIC PANEL,BMP] [CHEM] AM CBC WITH AUTO DIFF [HEME] AM 01/11/17 05:11 BMP [BASIC METABOLIC PANEL,BMP] [CHEM] AM CBC WITH AUTO DIFF [HEME] AM - Assessment Assessment:: Pneumonia CHF Atrial fibrillation, on warfarin Hematuria HTN OAB Depression Anemia - Plan Plan:: Pneumonia. Azithromycin 500 mg IV daily as well as ceftriaxone 1 gram IV daily. Will use nebs and also start the prednisone 40 mg PO daily x 5 days. Will also get daily CBC and BMP. Will repeat CXR in the morning. CHF. She got lasix in the ER. Additional lasix PRN. Atrial fibrillation, on warfarin. This is being held due to supratherapeutic INR. Pharmacy dosing warfarin. Hematuria. Will monitor, could be due to fall as well as catheterization. If not improving will need outpatient follow-up. HTN. Continue home meds. OAB. Continue home meds. Depression. Continue home meds. Anemia. Will repeat UA and do fecal occult blood. She may have been hemoconcentrated at admission due to dehydration and this is where she lies normally. I have requested outside records and will compare. PT eval and treat tomorrow.
[2017-01-08] MEDS: Sodium Chloride 0.9% 5 ML Syringe FLUSH PRN (18:02)
[2017-01-08] MEDS: Donepezil 10 MG Tab PO SCH (20:08)
[2017-01-08] MEDS: Oxybutynin 5 MG Tab PO SCH (20:08)
[2017-01-08] MEDS: cefTRIAXone 1 GM Vial IVPUSH SCH (20:08)
[2017-01-08] MEDS: Aspirin 81 MG Tab.Chew PO SCH (20:08)
[2017-01-08] MEDS: NORTRIPTYLINE 50 MG PO SCH (20:09)
[2017-01-08] MEDS: Docusate Sodium 100 MG Cap PO SCH (20:09)
[2017-01-08] MEDS: Acetaminophen 325 MG Tab PO PRN (20:11)
[2017-01-08] MEDS: guaiFENesin/Dextromethorphan 100-10 MG/5 ML Soln 5 ML Cup PO PRN (21:15)
[2017-01-09] MEDS: guaiFENesin/Dextromethorphan 100-10 MG/5 ML Soln 5 ML Cup PO PRN (02:48)
[2017-01-09] MEDS: Omeprazole 20 MG Cap.CR PO SCH (07:38)
[2017-01-09] MEDS: Citalopram 20 MG Tab PO SCH (08:29)
[2017-01-09] MEDS: guaiFENesin 600 MG Tab.ER PO SCH (08:29)
[2017-01-09] MEDS: Multivitamins with Minerals/Iron/Folic Acid/Lycopene Tab PO SCH (08:30)
[2017-01-09] MEDS: buPROPion 150 MG Tab.SR PO SCH (08:30)
[2017-01-09] MEDS: Lisinopril 5 MG Tab PO SCH (08:30)
[2017-01-09] MEDS: Calcium Citrate/Vitamin D3 315 MG-250 Unit Tab PO SCH (08:30)
[2017-01-09] MEDS: PREDNISONE 20 MG PO SCH (08:30)
[2017-01-09] MEDS: Metoprolol Succinate 25 MG Tab.ER PO SCH (08:30)
[2017-01-09] MEDS: Cholecalciferol (Vitamin D3) 1,000 Unit Tab PO SCH (08:30)
[2017-01-09] MEDS: Docusate Sodium 100 MG Cap PO SCH (08:36)
[2017-01-09] MEDS: Acetaminophen 325 MG Tab PO PRN (08:36)
[2017-01-09] MEDS: Azithromycin 500 MG in Sodium Chloride 0.9% 250 ML IV SCH (09:49)
[2017-01-09] MEDS: Sodium Chloride 0.9% 50 ML IV SCH (09:49)
[2017-01-09 15:34] VITALS: BP 123/68
--- NOTE | 2017-01-09 16:12 | PCM.DCSUM1 ---
Discharge Summary - Hospital Course Free Text/Narrative:: Moose is being discharged from inpatient stay from 01/05/17 - 01/09/17 due to presumed clinical pneumonia. She received ceftriaxone 1 gram IV as well as azithromycin 500 mg IV from 01/06 - 01/09. CXR done yesterday was negative. WBC WNL. She is being transitioned to [facility] due to weakness. Her family reported she had fallen at home a few times in the past 2 weeks. When she was initially admitted she had SOB and an elevated WBC with rales and wheezing. CXR negative at admission. O2 sats were OK through her admission. She was a little dehydrated with a mildly elevated creatinine. No fluids were given as her BNP was minimally elevated and she was taking in good oral intake. Creatinine has improved at discharge. She has been shows to also have a developing anemia. Hemoglobin was 12.7 in ER and was 9.0 on labs today. She had some hematuria but no obvious source of active bleeding. We will continue to trend this and see if she continues to drop. She may have been hemoconcentrated when she was admitted. Old records have been requested. She feels better overall at discharge with marked improvement in her breathing. She did receive steroids 40 mg PO daily x 5 days. No antibiotics will be continued. No medication changes. INR was supratherapeutic at admission and so this has been held and will be dosed by pharmacy with INR's trended. - Discharge Data Discharge Date: 01/09/17 Discharge Disposition: DC/Tfer W/I Hosp To [facility] Condition: Good - Discharge Diagnosis/Problem(s) (1) Atrial fibrillation SNOMED Code(s): 38971685 ICD Code: I48.91 - UNSPECIFIED ATRIAL FIBRILLATION Status: Acute Current Visit: Yes (2) Pneumonia SNOMED Code(s): 584673276 ICD Code: J18.9 - PNEUMONIA, UNSPECIFIED ORGANISM Status: Acute Current Visit: Yes (3) CHF (congestive heart failure) SNOMED Code(s): 03606927 ICD Code: I50.9 - HEART FAILURE, UNSPECIFIED Status: Chronic Current Visit: No Qualifiers: Congestive heart failure type: unspecified congestive heart failure type Congestive heart failure chronicity: unspecified congestive heart failure chronicity Qualified Code(s): I50.9 - Heart failure, unspecified (4) Depression SNOMED Code(s): 14849870 ICD Code: F32.9 - MAJOR DEPRESSIVE DISORDER, SINGLE EPISODE, UNSPECIFIED Status: Acute Current Visit: Yes (5) Hypertension SNOMED Code(s): 83928113 ICD Code: I10 - ESSENTIAL (PRIMARY) HYPERTENSION Status: Acute Current Visit: Yes (6) Overactive bladder SNOMED Code(s): 275748864 ICD Code: N32.81 - OVERACTIVE BLADDER Status: Acute Current Visit: Yes - Patient Summary/Data Consults: Consultations 01/08/17 14:19 PT Evaluation and Treatment [CONS] Routine - Patient Instructions Diet: Regular Diet as Tolerated - Discharge Plan Home Medications: Home Meds Citalopram Hydrobromide [Citalopram HBr] 30 mg PO DAILY 05/15/14 [History] Oxybutynin 5 mg PO BEDTIME 05/15/14 [History] Warfarin Sodium [Warfarin Sodium] 0.5 mg PO Q48H 05/15/14 [History] buPROPion HCl [Wellbutrin SR] 150 mg PO DAILY 05/15/14 [History] Acetaminophen [Tylenol] 650 mg PO Q4H PRN 09/05/15 [History] Aspirin 81 mg PO BEDTIME 09/05/15 [History] Calcium Carbonate/Vitamin D3 [Calcium 600 + Vit D3 Caplet] 1 each PO BID [History] Cholecalciferol (Vitamin D3) [Vitamin D3] 2,000 unit PO DAILY 09/05/15 [History] Docusate Sodium [Colace] 100 mg PO BEDTIME 09/05/15 [History] Multivitamin [Multivitamins] 1 each PO DAILY 09/05/15 [History] Omeprazole 20 mg PO DAILY 09/05/15 [History] Azithromycin [IJD: Azithromycin] 250 mg PO ASDIRECTED 01/05/17 [History] Lisinopril [Prinivil] 2.5 mg PO DAILY 01/05/17 [History] Metoprolol Succinate 25 mg PO DAILY 01/05/17 [History] Nortriptyline HCl [Pamelor] 100 mg PO BEDTIME 01/05/17 [History] Prednisone [IJD: predniSONE] 40 mg PO DAILY 01/05/17 [History] Warfarin Sodium [Coumadin] 4 mg PO BEDTIME 01/05/17 [History] guaiFENesin [Mucinex] 600 mg PO BID 01/05/17 [History] Donepezil [Aricept] 10 mg PO BEDTIME 01/06/17 [History] Forms: ED Department Discharge Referrals: Gini Hedrick MD [Primary Care Provider] - - General Info Admission Dx/Problem (Free Text: Pneumonia - Patient Data Vitals - Most Recent: Last Vital Signs Temp 98.5 F 01/09/17 15:00 Pulse 77 01/09/17 15:00 Resp 20 01/09/17 15:00 BP 123/68 01/09/17 15:00 Pulse Ox 96 01/09/17 15:00 Weight - Most Recent: 189 lb 4 oz I&O - Last 24 hours: Intake & Output 01/09/17 01/09/17 01/09/17 06:59 14:59 22:59 Intake Total 0 880 Output Total 600 Balance 0 280 Lab Results - Last 24 hrs: Laboratory Results - last 24 hr 01/08/17 01/09/17 01/09/17 Range/Units 18:00 07:17 07:17 WBC 6.9 (5.0-10.0) 10^3/uL RBC 3.06 L (3.80-5.50) 10^6/uL Hgb 9.0 L (12.0-16.0) g/dL Hct 26.6 L (37.0-47.0) % MCV 87.1 (82.0-92.0) fL MCH 29.4 (27.0-31.0) pg MCHC 33.7 (32.0-36.0) g/dL RDW 12.4 (11.5-14.5) % Plt Count 305 H (150-300) 10^3/uL MPV 7.3 L (7.4-10.4) fL Neut % (Auto) 60.2 (50.0-70.0) % Lymph % (Auto) 28.5 (20.0-40.0) % [place] % (Auto) 9.8 H (2.0-8.0) % Eos % (Auto) 1.0 (1.0-3.0) % Baso % (Auto) 0.5 (0.0-1.0) % Neut # (Auto) 4.1 (2.5-7.0) 10^3/uL Lymph # (Auto) 2.0 (1.0-4.0) 10^3/uL [place] # (Auto) 0.7 (0.1-0.8) 10^3/uL Eos # (Auto) 0.1 (0.1-0.3) 10^3/uL Baso # (Auto) 0.0 (0.0-0.1) 10^3/uL PT (8.9-11.4) SEC INR (0.9-1.1) Sodium 139 (136-145) mmol/L Potassium 4.2 (3.3-5.3) mmol/L Chloride 103 (98-115) mmol/L Carbon Dioxide 28.1 (21.0-32.0) mmol/L BUN 19 (6-25) mg/dL Creatinine 1.25 H (0.51-1.17) mg/dL Est Cr Clr Drug Dosing 33.80 mL/min Estimated GFR (MDRD) 41 mL/min Glucose 79 (70-110) mg/dL Calcium 8.4 L (8.7-10.3) mg/dL Specimen Type Urinblad Urine Color Yellow (YELLOW) Urine Appearance Cloudy H (CLEAR) Urine pH 7.0 (5.0-9.0) Ur Specific [place] 1.015 (1.005-1.030) Urine Protein Negative (NEGATIVE) mg/dL Urine Glucose (UA) Negative (NEGATIVE) mg/dL Urine Ketones Negative (NEGATIVE) mg/dL Urine Occult Blood Moderate H (NEGATIVE) Urine Nitrite Negative (NEGATIVE) Urine Bilirubin Negative (NEGATIVE) Urine Urobilinogen 1.0 (0.2-1.0) E.U./dL Ur Leukocyte Esterase Small H (NEGATIVE) Urine RBC 5-10 H /HPF Urine WBC 5-10 H /HPF Ur Epithelial Cells Rare /LPF Amorphous Sediment Many H (0/HPF) /HPF Urine Bacteria Moderate H (NONE TO FEW) /HPF Urine Yeast Rare H (NEGATIVE) /HPF 01/09/17 Range/Units 07:17 WBC (5.0-10.0) 10^3/uL RBC (3.80-5.50) 10^6/uL Hgb (12.0-16.0) g/dL Hct (37.0-47.0) % MCV (82.0-92.0) fL MCH (27.0-31.0) pg MCHC (32.0-36.0) g/dL RDW (11.5-14.5) % Plt Count (150-300) 10^3/uL MPV (7.4-10.4) fL Neut % (Auto) (50.0-70.0) % Lymph % (Auto) (20.0-40.0) % [place] % (Auto) (2.0-8.0) % Eos % (Auto) (1.0-3.0) % Baso % (Auto) (0.0-1.0) % Neut # (Auto) (2.5-7.0) 10^3/uL Lymph # (Auto) (1.0-4.0) 10^3/uL [place] # (Auto) (0.1-0.8) 10^3/uL Eos # (Auto) (0.1-0.3) 10^3/uL Baso # (Auto) (0.0-0.1) 10^3/uL PT 18.9 H (8.9-11.4) SEC INR 1.8 H (0.9-1.1) Sodium (136-145) mmol/L Potassium (3.3-5.3) mmol/L Chloride (98-115) mmol/L Carbon Dioxide (21.0-32.0) mmol/L BUN (6-25) mg/dL Creatinine (0.51-1.17) mg/dL Est Cr Clr Drug Dosing mL/min Estimated GFR (MDRD) mL/min Glucose (70-110) mg/dL Calcium (8.7-10.3) mg/dL Specimen Type Urine Color (YELLOW) Urine Appearance (CLEAR) Urine pH (5.0-9.0) Ur Specific [place] (1.005-1.030) Urine Protein (NEGATIVE) mg/dL Urine Glucose (UA) (NEGATIVE) mg/dL Urine Ketones (NEGATIVE) mg/dL Urine Occult Blood (NEGATIVE) Urine Nitrite (NEGATIVE) Urine Bilirubin (NEGATIVE) Urine Urobilinogen (0.2-1.0) E.U./dL Ur Leukocyte Esterase (NEGATIVE) Urine RBC /HPF Urine WBC /HPF Ur Epithelial Cells /LPF Amorphous Sediment (0/HPF) /HPF Urine Bacteria (NONE TO FEW) /HPF Urine Yeast (NEGATIVE) /HPF [facility] Results - Last 24 hrs: Microbiology 01/06/17 10:00 Aerobic Blood Culture - Preliminary Blood - Venous - Lab Draw NO GROWTH AFTER 3 DAYS Anaerobic Blood Culture - Preliminary NO GROWTH AFTER 3 DAYS 01/06/17 09:45 Aerobic Blood Culture - Preliminary Blood - Venous NO GROWTH AFTER 3 DAYS Anaerobic Blood Culture - Preliminary NO GROWTH AFTER 3 DAYS Med Orders - Current: Current Medications Acetaminophen (Tylenol) 650 mg PO Q4H PRN PRN Reason: Pain Last Admin: 01/09/17 08:36 Dose: 650 mg Albuterol/Ipratropium (Duoneb 3.0-0.5 Mg/3 Ml) 3 ml NEB Q4HRRT PRN PRN Reason: Shortness of Breath Last Admin: 01/06/17 18:39 Dose: 3 ml Aspirin (Aspirin) 81 mg PO BEDTIME [facility] Last Admin: 01/08/17 20:08 Dose: 81 mg Bupropion HCl (Wellbutrin Sr) 150 mg PO DAILY [facility] Last Admin: 01/09/17 08:30 Dose: 150 mg Calcium Citrate (Calcium Citrate + D) 1 tab PO BIDMEALS [facility] Last Admin: 01/09/17 08:30 Dose: 1 tab Ceftriaxone Sodium (Rocephin) 1 gm IVPUSH Q24H [facility] Stop: 01/09/17 21:00 Last Admin: 01/08/17 20:08 Dose: 1 gm Cholecalciferol (Vitamin D3) 2,000 units PO DAILY [facility] Last Admin: 01/09/17 08:30 Dose: 2,000 units Citalopram Hydrobromide (Celexa) 30 mg PO DAILY [facility] Last Admin: 01/09/17 08:29 Dose: 30 mg Docusate Sodium (Colace) 100 mg PO BID [facility] Last Admin: 01/09/17 08:36 Dose: 100 mg Donepezil HCl (Aricept) 10 mg PO BEDTIME [facility] Last Admin: 01/08/17 20:08 Dose: 10 mg Guaifenesin (Mucinex) 600 mg PO BID [facility] Last Admin: 01/09/17 08:29 Dose: 600 mg Guaifenesin/Phenylephrine HCl (Robitussin Dm) 10 ml PO Q4H PRN PRN Reason: Cough Last Admin: 01/09/17 02:48 Dose: 10 ml Sodium Chloride (Normal Saline) 50 mls @ 20 mls/hr IV DAILY [facility] Last Admin: 01/09/17 09:49 Dose: 20 mls/hr Lisinopril (Prinivil) 2.5 mg PO DAILY [facility] Last Admin: 01/09/17 08:30 Dose: 2.5 mg Magnesium Hydroxide (Milk Of Magnesia) 30 ml PO DAILY PRN PRN Reason: Constipation Last Admin: 01/07/17 22:04 Dose: 30 ml Metoprolol Succinate (Toprol Xl) 25 mg PO DAILY [facility] Last Admin: 01/09/17 08:30 Dose: 25 mg Multivitamins/Minerals (Centrum) 1 tab PO DAILY [facility] Last Admin: 01/09/17 08:30 Dose: 1 tab Omeprazole (Omeprazole) 20 mg PO ACBREAKFAST [facility] Last Admin: 01/09/17 07:38 Dose: 20 mg Oxybutynin Chloride (Oxybutynin) 5 mg PO BEDTIME [facility] Last Admin: 01/08/17 20:08 Dose: 5 mg Ptom Nortriptyline 50 Mg Cap 2 each PO BEDTIME [facility] Last Admin: 01/08/17 20:09 Dose: 2 each Ptom Prednisone (20 Mg Tab) 2 each PO WITHBREAKFAST [facility] Stop: 01/10/17 10:01 Last Admin: 01/09/17 08:30 Dose: 2 each Sodium Chloride (Syrex Flush) 5 ml FLUSH Q8HR PRN PRN Reason: Keep Vein Open Last Admin: 01/08/17 18:02 Dose: 5 ml Warfarin Sodium (Coumadin) 4 mg PO DAILY@1800 [facility] Last Admin: 01/06/17 09:15 Dose: Not Given Warfarin Sodium (Coumadin) 0.5 mg PO Q48H [facility] Last Admin: 01/06/17 09:15 Dose: Not Given Warfarin Sodium (Pharmacy To Dose - Warfarin) 0 dose PO ASDIRECTED [facility] Discontinued Medications Albuterol/Ipratropium (Duoneb 3.0-0.5 Mg/3 Ml) 3 ml NEB ONETIME ONE Stop: 01/05/17 19:03 Last Admin: 01/05/17 19:10 Dose: 3 ml Ceftriaxone Sodium (Rocephin) 1 gm IVPUSH ONETIME ONE Stop: 01/05/17 20:37 Last Admin: 01/05/17 21:10 Dose: 1 gm Docusate Sodium (Colace) 100 mg PO BEDTIME [facility] Last Admin: 01/07/17 21:35 Dose: 100 mg Furosemide (Lasix) 20 mg IVPUSH NOW ONE Stop: 01/05/17 20:54 Last Admin: 01/05/17 21:10 Dose: 20 mg Azithromycin 500 mg/ Sodium (Chloride) 255 mls @ 255 mls/hr IV Q24H [facility] Last Admin: 01/09/17 09:49 Dose: 255 mls/hr Non-Formulary Medication (Azithromycin [Ijd: Azithromycin]) 250 mg PO ASDIRECTED [facility] Non-Formulary Medication (Guaifenesin [Mucinex]) 600 mg PO BID [facility] Last Admin: 01/05/17 21:55 Dose: Not Given Non-Formulary Medication (Nortriptyline Hcl [Pamelor]) 100 mg PO BEDTIME [facility] Last Admin: 01/05/17 21:56 Dose: Not Given Non-Formulary Medication (Warfarin Sodium) 4 mg PO BEDTIME [facility] Last Admin: 01/05/17 21:57 Dose: 4 mg Non-Formulary Medication (Warfarin Sodium) 0.5 mg PO Q48H [facility] Last Admin: 01/05/17 21:57 Dose: 0.5 mg Ptom Azithromycin 250 Mg Tab 1 each PO DAILY [facility] Stop: 01/08/17 09:01 Last Admin: 01/06/17 10:18 Dose: Not Given Sodium Chloride (Syrex Flush) 5 ml FLUSH Q8HR PRN PRN Reason: Keep Vein Open - Exam General: Reports: Alert, Oriented, Cooperative, No Acute Distress Lungs: Reports: Clear to Auscultation, Normal Respiratory Effort Cardiovascular: Reports: Irregular Rhythm, Murmurs *Q Meaningful Use (DIS) - VTE *Q VTE Criteria *Q: - Stroke *Q Stroke Criteria *Q: - AMI *Q AMI Criteria *Q:
== END 2017-01-09 16:24 | disposition swing bed (61) | DRG 195 ==
LOC: KA.ED 18:30 → KA.MS 20:44 → OBSVTOIN 01-06 08:45
PROVIDERS: ADMIT Physician Assistant Surgical; ATTEND Internal Medicine
DX: J18.9 Pneumonia, unspecified organism (principal); I48.91 Unspecified atrial fibrillation; I50.9 Heart failure, unspecified; F32.9 Major depressive disorder, single episode, unspecified; I10 Essential (primary) hypertension; Z79.01 Long term (current) use of anticoagulants; N32.81 Overactive bladder; Z79.899 Other long term (current) drug therapy
CPT/HCPCS: 36415 ×2; 71020; 80053; 81001; 83880; 85025; 94640; 99285; A9270 ×6; J0696; J1940; 80048; 85610; 87040; 87086; 96361; 96374; 96375; 97162-GP; 99220; G0378; J0456; J7050

== ENCOUNTER 2017-01-09 14:21 | Inpatient (IN) | payer MEDICARE, OTHER ==
[2017-01-09] MEDS ORDERED: Magnesium Hydroxide 400 MG/5 ML Susp 30 ML Cup PO PRN (16:19)
[2017-01-09] MEDS ORDERED: Sodium Chloride 0.9% 5 ML Syringe FLUSH PRN ×2 (16:19)
[2017-01-09] MEDS ORDERED: Albuterol/Ipratropium 3.0-0.5 MG/3 ML Neb Soln NEB PRN (16:19)
[2017-01-09] MEDS: Calcium Citrate/Vitamin D3 315 MG-250 Unit Tab PO SCH (17:48)
[2017-01-09] MEDS ORDERED: Warfarin 2 MG Tab PO SCH (18:00)
[2017-01-09] MEDS ORDERED: NORTRIPTYLINE 50 MG PO SCH (21:00)
[2017-01-09] MEDS: Acetaminophen 325 MG Tab PO PRN (21:05)
[2017-01-09] MEDS: Oxybutynin 5 MG Tab PO SCH (21:06)
[2017-01-09] MEDS: Docusate Sodium 100 MG Cap PO SCH (21:06)
[2017-01-09] MEDS: guaiFENesin 600 MG Tab.ER PO SCH (21:07)
[2017-01-09] MEDS: Donepezil 10 MG Tab PO SCH (21:07)
[2017-01-09] MEDS: Aspirin 81 MG Tab.Chew PO SCH (21:07)
[2017-01-10] MEDS: guaiFENesin/Dextromethorphan 100-10 MG/5 ML Soln 5 ML Cup PO PRN (06:16)
[2017-01-10] MEDS: Omeprazole 20 MG Cap.CR PO SCH (06:54)
[2017-01-10] MEDS ORDERED: PREDNISONE 20 MG PO SCH (08:00)
[2017-01-10] MEDS: Calcium Citrate/Vitamin D3 315 MG-250 Unit Tab PO SCH ×2 (08:23→17:29)
[2017-01-10] MEDS: Citalopram 20 MG Tab PO SCH (08:23)
[2017-01-10] MEDS: Multivitamins with Minerals/Iron/Folic Acid/Lycopene Tab PO SCH (08:24)
[2017-01-10] MEDS: guaiFENesin 600 MG Tab.ER PO SCH ×2 (08:24→20:05)
[2017-01-10] MEDS: Lisinopril 5 MG Tab PO SCH (08:24)
[2017-01-10] MEDS: Docusate Sodium 100 MG Cap PO SCH ×2 (08:24→20:05)
[2017-01-10] MEDS: Cholecalciferol (Vitamin D3) 1,000 Unit Tab PO SCH (08:25)
[2017-01-10] MEDS: buPROPion 150 MG Tab.SR PO SCH (08:25)
[2017-01-10] MEDS ORDERED: Warfarin 5 MG Tab PO ONE (09:00)
[2017-01-10] MEDS ORDERED: Sodium Chloride 0.9% 50 ML IV SCH (09:00)
[2017-01-10] MEDS: Metoprolol Succinate 25 MG Tab.ER PO SCH (09:08)
[2017-01-10] MEDS ORDERED: Sodium Chloride 0.9% 500 ML IV SCH ×2 (10:00→13:30)
[2017-01-10] MEDS ORDERED: Sodium Chloride 0.9% 50 ML SDV FLUSH SCH (13:15)
[2017-01-10] MEDS: Iopamidol 612 MG/ML 75 ML Bottle IV ONE ×2 (13:43→15:46)
--- NOTE | 2017-01-10 15:51 | PCM.PN ---
- General Info Date of Service: 01/10/17 Admission Dx/Problem (Free Text): Weakness - Review of Systems Systems Review Comment:: Moose is seen today on [facility]. She was admitted due to weakness on . She states "I feel pretty good today". I note that on her labs her hemoglobin has dropped to 8.4 from 12.7 on admission. I look through old records and it usually runs between 10.5 - 12. She has no obvious source of bleeding and no pain. When I mentioned doing EGD and colonoscopy she and her daughter did not want to proceed down that route just yet. INR was 1.3 today. - Patient Data Vitals - Most Recent: Last Vital Signs Temp 97.8 F 01/10/17 14:49 Pulse 76 01/10/17 14:49 Resp 16 01/10/17 14:49 BP 116/64 01/10/17 14:49 Pulse Ox 93 L 01/10/17 15:08 Weight - Most Recent: 196 lb 8 oz I&O - Last 24 Hours: Intake & Output 01/10/17 01/10/17 01/10/17 06:59 14:59 22:59 Intake Total 100 857 Output Total 900 300 Balance -800 557 Lab Results Last 24 Hours: Laboratory Results - last 24 hr 01/09/17 01/10/17 01/10/17 Range/Units 17:30 07:15 07:15 WBC 8.2 (5.0-10.0) 10^3/uL RBC 2.95 L (3.80-5.50) 10^6/uL Hgb 8.4 L (12.0-16.0) g/dL Hct 25.9 L (37.0-47.0) % MCV 87.8 (82.0-92.0) fL MCH 28.5 (27.0-31.0) pg MCHC 32.5 (32.0-36.0) g/dL RDW 12.6 (11.5-14.5) % Plt Count 339 H (150-300) 10^3/uL MPV 7.0 L (7.4-10.4) fL Neut % (Auto) 60.4 (50.0-70.0) % Lymph % (Auto) 27.6 (20.0-40.0) % [place] % (Auto) 10.5 H (2.0-8.0) % Eos % (Auto) 1.1 (1.0-3.0) % Baso % (Auto) 0.4 (0.0-1.0) % Neut # (Auto) 4.9 (2.5-7.0) 10^3/uL Lymph # (Auto) 2.3 (1.0-4.0) 10^3/uL [place] # (Auto) 0.9 H (0.1-0.8) 10^3/uL Eos # (Auto) 0.1 (0.1-0.3) 10^3/uL Baso # (Auto) 0.0 (0.0-0.1) 10^3/uL PT 15.2 H (8.9-11.4) SEC INR 1.5 H (0.9-1.1) Sodium 137 (136-145) mmol/L Potassium 4.2 (3.3-5.3) mmol/L Chloride 102 (98-115) mmol/L Carbon Dioxide 28.6 (21.0-32.0) mmol/L BUN 21 (6-25) mg/dL Creatinine 1.29 H (0.51-1.17) mg/dL Est Cr Clr Drug Dosing 32.75 mL/min Estimated GFR (MDRD) 39 mL/min Glucose 81 (70-110) mg/dL Calcium 8.5 L (8.7-10.3) mg/dL 01/10/17 Range/Units 07:15 WBC (5.0-10.0) 10^3/uL RBC (3.80-5.50) 10^6/uL Hgb (12.0-16.0) g/dL Hct (37.0-47.0) % MCV (82.0-92.0) fL MCH (27.0-31.0) pg MCHC (32.0-36.0) g/dL RDW (11.5-14.5) % Plt Count (150-300) 10^3/uL MPV (7.4-10.4) fL Neut % (Auto) (50.0-70.0) % Lymph % (Auto) (20.0-40.0) % [place] % (Auto) (2.0-8.0) % Eos % (Auto) (1.0-3.0) % Baso % (Auto) (0.0-1.0) % Neut # (Auto) (2.5-7.0) 10^3/uL Lymph # (Auto) (1.0-4.0) 10^3/uL [place] # (Auto) (0.1-0.8) 10^3/uL Eos # (Auto) (0.1-0.3) 10^3/uL Baso # (Auto) (0.0-0.1) 10^3/uL PT 13.3 H (8.9-11.4) SEC INR 1.3 H (0.9-1.1) Sodium (136-145) mmol/L Potassium (3.3-5.3) mmol/L Chloride (98-115) mmol/L Carbon Dioxide (21.0-32.0) mmol/L BUN (6-25) mg/dL Creatinine (0.51-1.17) mg/dL Est Cr Clr Drug Dosing mL/min Estimated GFR (MDRD) mL/min Glucose (70-110) mg/dL Calcium (8.7-10.3) mg/dL Med Orders - Current: Current Medications Acetaminophen (Tylenol) 650 mg PO Q4H PRN PRN Reason: Pain Last Admin: 01/09/17 21:05 Dose: 650 mg Albuterol/Ipratropium (Duoneb 3.0-0.5 Mg/3 Ml) 3 ml NEB Q4HRRT PRN PRN Reason: Shortness of Breath Aspirin (Aspirin) 81 mg PO BEDTIME [facility] Last Admin: 01/09/17 21:07 Dose: 81 mg Bupropion HCl (Wellbutrin Sr) 150 mg PO DAILY [facility] Last Admin: 01/10/17 08:25 Dose: 150 mg Calcium Citrate (Calcium Citrate + D) 1 tab PO BIDMEALS [facility] Last Admin: 01/10/17 08:23 Dose: 1 tab Cholecalciferol (Vitamin D3) 2,000 units PO DAILY [facility] Last Admin: 01/10/17 08:25 Dose: 2,000 units Citalopram Hydrobromide (Celexa) 30 mg PO DAILY [facility] Last Admin: 01/10/17 08:23 Dose: 30 mg Docusate Sodium (Colace) 100 mg PO BID [facility] Last Admin: 01/10/17 08:24 Dose: 100 mg Donepezil HCl (Aricept) 10 mg PO BEDTIME [facility] Last Admin: 01/09/17 21:07 Dose: 10 mg Guaifenesin (Mucinex) 600 mg PO BID [facility] Last Admin: 01/10/17 08:24 Dose: 600 mg Guaifenesin/Phenylephrine HCl (Robitussin Dm) 10 ml PO Q4H PRN PRN Reason: Cough Last Admin: 01/10/17 06:16 Dose: 10 ml Sodium Chloride (Normal Saline) 500 mls @ 75 mls/hr IV ASDIRECTED [facility] Stop: 01/10/17 20:30 Last Admin: 01/10/17 13:19 Dose: 75 mls/hr Lisinopril (Prinivil) 2.5 mg PO DAILY [facility] Last Admin: 01/10/17 08:24 Dose: 2.5 mg Magnesium Hydroxide (Milk Of Magnesia) 30 ml PO DAILY PRN PRN Reason: Constipation Metoprolol Succinate (Toprol Xl) 25 mg PO DAILY [facility] Last Admin: 01/10/17 09:08 Dose: 25 mg Multivitamins/Minerals (Centrum) 1 tab PO DAILY [facility] Last Admin: 01/10/17 08:24 Dose: 1 tab Nortriptyline HCl (Nortriptyline) 100 mg PO BEDTIME [facility] Omeprazole (Omeprazole) 20 mg PO ACBREAKFAST [facility] Last Admin: 01/10/17 06:54 Dose: 20 mg Oxybutynin Chloride (Oxybutynin) 5 mg PO BEDTIME [facility] Last Admin: 01/09/17 21:06 Dose: 5 mg Sodium Chloride (Syrex Flush) 5 ml FLUSH Q8HR PRN PRN Reason: Keep Vein Open Last Admin: 01/09/17 21:04 Dose: 5 ml Warfarin Sodium (Pharmacy To Dose - Warfarin) 0 dose PO ASDIRECTED [facility] Discontinued Medications Sodium Chloride (Normal Saline) 500 mls @ 75 mls/hr IV ASDIRECTED [facility] Stop: 01/10/17 17:00 Iopamidol (Isovue-300 (61%)) 75 ml IV ONETIME ONE Stop: 01/10/17 13:12 Ptom Nortriptyline 50mg Cap 2 each PO BEDTIME [facility] Last Admin: 01/09/17 21:07 Dose: 2 each Ptom Prednisone (20mg Tab) 2 each PO WITHBREAKFAST [facility] Stop: 01/10/17 10:01 Last Admin: 01/10/17 08:23 Dose: 2 each Sodium Chloride (Normal Saline) 50 ml FLUSH ASDIRECTED [facility] Stop: 01/10/17 14:00 Warfarin Sodium (Coumadin) 4 mg PO DAILY@1800 [facility] Last Admin: 01/09/17 17:47 Dose: 4 mg Warfarin Sodium (Coumadin) 0.5 mg PO Q48H [facility] Warfarin Sodium (Coumadin) 5 mg PO ONETIME ONE Stop: 01/10/17 09:01 Last Admin: 01/10/17 09:09 Dose: 5 mg - Exam General: Alert, Oriented, Cooperative, No Acute Distress Lungs: Clear to Auscultation, Normal Respiratory Effort Cardiovascular: Irregular Rhythm, Murmurs - Problem List & Annotations (1) Weakness SNOMED Code(s): 49422020 Code(s): R53.1 - WEAKNESS Status: Acute Current Visit: Yes (2) Anemia SNOMED Code(s): 790940429 Code(s): D64.9 - ANEMIA, UNSPECIFIED Status: Acute Current Visit: Yes (3) Atrial fibrillation SNOMED Code(s): 08033208 Code(s): I48.91 - UNSPECIFIED ATRIAL FIBRILLATION Status: Acute Current Visit: No (4) Hypertension SNOMED Code(s): 00574909 Code(s): I10 - ESSENTIAL (PRIMARY) HYPERTENSION Status: Acute Current Visit: No (5) Overactive bladder SNOMED Code(s): 746599494 Code(s): N32.81 - OVERACTIVE BLADDER Status: Acute Current Visit: No - Problem List Review Problem List Initiated/Reviewed/Updated: Yes - My Orders Last 24 Hours: My Active Orders 01/09/17 16:19 Patient Status [ADT] Routine Oxygen Therapy [RC] PRN Peripheral IV Care [RC] . DIRECTED Pulse Oximetry [RC] CONTINUOUS RT Aerosol Therapy [RC] ASDIRECTED Vital Signs [RC] 0700,1500 PT Evaluation and Treatment [CONS] Routine OCCULT BLOOD SCREEN [OP] Routine Acetaminophen [Tylenol] 650 mg PO Q4H PRN Albuterol/Ipratropium [DuoNeb 3.0-0.5 MG/3 ML] 3 ml NEB Q4HRRT PRN Dextromethorphan/guaiFENesin [Robitussin DM] 10 ml PO Q4H PRN Magnesium Hydroxide [Milk of Magnesia] 30 ml PO DAILY PRN Sodium Chloride 0.9% [Syrex Flush] 5 ml FLUSH Q8HR PRN Warfarin Pharmacy to Dose [Pharmacy to Dose - Warfarin] 0 dose PO ASDIRECTED Peripheral IV Insertion Adult [OM.PC] Urgent Saline Lock Insert [OM.PC] Routine 01/09/17 16:23 Resuscitation Status Routine 01/09/17 18:00 Calcium Citrate/Vitamin D3 [Calcium Citrate + D] 1 tab PO BIDMEALS 01/09/17 21:00 Aspirin 81 mg PO BEDTIME Docusate Sodium [Colace] 100 mg PO BID Donepezil [Aricept] 10 mg PO BEDTIME Oxybutynin 5 mg PO BEDTIME guaiFENesin [Mucinex] 600 mg PO BID 01/10/17 07:15 IRON PNL (FE, TIBC, CYNDEE, %SAT) [REF] Routine 01/10/17 07:30 Omeprazole 20 mg PO ACBREAKFAST 01/10/17 08:50 Abdomen Pelvis w Cont [CT] Routine Chest w Cont [CT] Routine 01/10/17 09:00 Cholecalciferol (Vitamin D3) [Vitamin D3] 2,000 units PO DAILY Citalopram [Celexa] 30 mg PO DAILY FA/Lycopene/Lut/MV,Ca,Iron,Min [Centrum] 1 tab PO DAILY Lisinopril [Prinivil] 2.5 mg PO DAILY Metoprolol Succinate [Toprol XL] 25 mg PO DAILY buPROPion [Wellbutrin SR] 150 mg PO DAILY 01/10/17 13:30 Sodium Chloride 0.9% [Normal Saline] 500 ml IV ASDIRECTED 01/10/17 13:42 Peripheral IV Discontinue [OM.PC] Routine 01/10/17 21:00 Nortriptyline 100 mg PO BEDTIME 01/11/17 05:11 BMP [BASIC METABOLIC PANEL,BMP] [CHEM] AM CBC WITH AUTO DIFF [HEME] AM 01/11/17 05:30 INR,PT,PROTHROMBIN TIME [COAG] DAILY 01/12/17 05:11 BASIC METABOLIC PANEL,BMP [CHEM] AM CBC WITH AUTO DIFF [HEME] AM 01/12/17 05:30 INR,PT,PROTHROMBIN TIME [COAG] DAILY 01/13/17 05:11 BASIC METABOLIC PANEL,BMP [CHEM] AM CBC WITH AUTO DIFF [HEME] AM 01/13/17 05:30 INR,PT,PROTHROMBIN TIME [COAG] DAILY 01/14/17 05:11 BASIC METABOLIC PANEL,BMP [CHEM] AM CBC WITH AUTO DIFF [HEME] AM 01/14/17 05:30 INR,PT,PROTHROMBIN TIME [COAG] DAILY 01/15/17 05:11 BASIC METABOLIC PANEL,BMP [CHEM] AM CBC WITH AUTO DIFF [HEME] AM 01/15/17 05:30 INR,PT,PROTHROMBIN TIME [COAG] DAILY 01/16/17 05:11 BASIC METABOLIC PANEL,BMP [CHEM] AM CBC WITH AUTO DIFF [HEME] AM 01/16/17 05:30 INR,PT,PROTHROMBIN TIME [COAG] DAILY 01/17/17 05:30 INR,PT,PROTHROMBIN TIME [COAG] DAILY - Assessment Assessment:: Weakness Anemia HTN A-fib OAB Acute renal insufficiency - Plan Plan:: Weakness. Continue with PT. Anemia. I obtained CT C/A/P today. She has a small pararenal retroperitoneal hemorrhage. I did discuss with radiology and surgery, no further intervention at this time but if hemoglobin continues to fall may need repeat CT abdomen/ pelvis and possibly EGD and colonoscopy. HTN. Continue outpatient meds. A-fib. Will hold warfarin due to the bleed and dropping hemoglobin. Explained risks of stroke, clots, etc. being off wafarin but benefit to discontinuing outweighs risk at this time. OAB. Continue outpatient meds. Acute renal insufficiency. 500 cc hydration after contrast today. Daily CBC and BMP.
[2017-01-10] MEDS: Aspirin 81 MG Tab.Chew PO SCH (20:05)
[2017-01-10] MEDS: Donepezil 10 MG Tab PO SCH (20:05)
[2017-01-10] MEDS: Nortriptyline 25 MG Cap PO SCH (20:06)
[2017-01-10] MEDS: Oxybutynin 5 MG Tab PO SCH (20:06)
[2017-01-11] MEDS: Calcium Citrate/Vitamin D3 315 MG-250 Unit Tab PO SCH ×2 (07:35→18:13)
[2017-01-11] MEDS: Omeprazole 20 MG Cap.CR PO SCH (07:35)
[2017-01-11] MEDS: Citalopram 20 MG Tab PO SCH (08:33)
[2017-01-11] MEDS: guaiFENesin 600 MG Tab.ER PO SCH ×2 (08:33→20:23)
[2017-01-11] MEDS: Multivitamins with Minerals/Iron/Folic Acid/Lycopene Tab PO SCH (08:33)
[2017-01-11] MEDS: Docusate Sodium 100 MG Cap PO SCH ×2 (08:33→20:23)
[2017-01-11] MEDS: Metoprolol Succinate 25 MG Tab.ER PO SCH (08:36)
[2017-01-11] MEDS: Cholecalciferol (Vitamin D3) 1,000 Unit Tab PO SCH (08:36)
[2017-01-11] MEDS: buPROPion 150 MG Tab.SR PO SCH (08:36)
[2017-01-11] MEDS: Lisinopril 5 MG Tab PO SCH (08:37)
[2017-01-11] MEDS ORDERED: Bisacodyl 5 MG Tab PO PRN (11:20)
[2017-01-11] MEDS: Oxybutynin 5 MG Tab PO SCH (20:23)
[2017-01-11] MEDS: Nortriptyline 25 MG Cap PO SCH (20:23)
[2017-01-11] MEDS: Donepezil 10 MG Tab PO SCH (20:23)
[2017-01-11] MEDS: Aspirin 81 MG Tab.Chew PO SCH (20:23)
[2017-01-11] MEDS: guaiFENesin/Dextromethorphan 100-10 MG/5 ML Soln 5 ML Cup PO PRN (21:56)
[2017-01-12] MEDS: Omeprazole 20 MG Cap.CR PO SCH (07:30)
[2017-01-12] MEDS: Citalopram 20 MG Tab PO SCH (09:01)
[2017-01-12] MEDS: Cholecalciferol (Vitamin D3) 1,000 Unit Tab PO SCH (09:01)
[2017-01-12] MEDS: buPROPion 150 MG Tab.SR PO SCH (09:01)
[2017-01-12] MEDS: Lisinopril 5 MG Tab PO SCH (09:01)
[2017-01-12] MEDS: Multivitamins with Minerals/Iron/Folic Acid/Lycopene Tab PO SCH (09:01)
[2017-01-12] MEDS: Metoprolol Succinate 25 MG Tab.ER PO SCH (09:02)
[2017-01-12] MEDS: Calcium Citrate/Vitamin D3 315 MG-250 Unit Tab PO SCH ×2 (09:03→17:51)
[2017-01-12] MEDS: Docusate Sodium 100 MG Cap PO SCH ×2 (09:08→20:25)
[2017-01-12] MEDS: guaiFENesin 600 MG Tab.ER PO SCH ×2 (09:08→20:26)
[2017-01-12] MEDS: Donepezil 10 MG Tab PO SCH (20:25)
[2017-01-12] MEDS: Oxybutynin 5 MG Tab PO SCH (20:26)
[2017-01-12] MEDS: Aspirin 325 MG Tab.EC PO SCH (20:26)
[2017-01-12] MEDS: guaiFENesin/Dextromethorphan 100-10 MG/5 ML Soln 5 ML Cup PO PRN (21:12)
[2017-01-12] MEDS: Nortriptyline 25 MG Cap PO SCH (21:24)
[2017-01-13] MEDS ORDERED: Aspirin 325 MG Tab.EC PO SCH (08:00)
[2017-01-13] MEDS: Citalopram 20 MG Tab PO SCH (08:28)
[2017-01-13] MEDS: Multivitamins with Minerals/Iron/Folic Acid/Lycopene Tab PO SCH (08:28)
[2017-01-13] MEDS: Docusate Sodium 100 MG Cap PO SCH ×2 (08:28→20:10)
[2017-01-13] MEDS: Cholecalciferol (Vitamin D3) 1,000 Unit Tab PO SCH (08:28)
[2017-01-13] MEDS: Omeprazole 20 MG Cap.CR PO SCH (08:28)
[2017-01-13] MEDS: Calcium Citrate/Vitamin D3 315 MG-250 Unit Tab PO SCH ×2 (08:28→17:16)
[2017-01-13] MEDS: guaiFENesin 600 MG Tab.ER PO SCH ×2 (08:29→20:10)
[2017-01-13] MEDS: Lisinopril 5 MG Tab PO SCH (08:29)
[2017-01-13] MEDS: Metoprolol Succinate 25 MG Tab.ER PO SCH (08:30)
[2017-01-13] MEDS: buPROPion 150 MG Tab.SR PO SCH (08:30)
[2017-01-13] MEDS: Aspirin 325 MG Tab.EC PO SCH (20:10)
[2017-01-13] MEDS: Oxybutynin 5 MG Tab PO SCH (20:10)
[2017-01-13] MEDS: Donepezil 10 MG Tab PO SCH (20:10)
[2017-01-13] MEDS: Nortriptyline 25 MG Cap PO SCH (20:10)
[2017-01-14] MEDS: Omeprazole 20 MG Cap.CR PO SCH (06:34)
[2017-01-14] MEDS: Citalopram 20 MG Tab PO SCH (09:33)
[2017-01-14] MEDS: Docusate Sodium 100 MG Cap PO SCH ×2 (09:33→20:45)
[2017-01-14] MEDS: Lisinopril 5 MG Tab PO SCH (09:34)
[2017-01-14] MEDS: Multivitamins with Minerals/Iron/Folic Acid/Lycopene Tab PO SCH (09:34)
[2017-01-14] MEDS: Calcium Citrate/Vitamin D3 315 MG-250 Unit Tab PO SCH ×2 (09:34→18:31)
[2017-01-14] MEDS: buPROPion 150 MG Tab.SR PO SCH (09:35)
[2017-01-14] MEDS: Cholecalciferol (Vitamin D3) 1,000 Unit Tab PO SCH (09:35)
[2017-01-14] MEDS: Metoprolol Succinate 25 MG Tab.ER PO SCH (09:35)
[2017-01-14] MEDS: guaiFENesin 600 MG Tab.ER PO SCH ×2 (09:39→20:45)
[2017-01-14] MEDS: Donepezil 10 MG Tab PO SCH (20:44)
[2017-01-14] MEDS: Nortriptyline 25 MG Cap PO SCH (20:45)
[2017-01-14] MEDS: Aspirin 325 MG Tab.EC PO SCH (20:45)
[2017-01-14] MEDS: Oxybutynin 5 MG Tab PO SCH (20:45)
[2017-01-15] MEDS: Omeprazole 20 MG Cap.CR PO SCH (08:22)
[2017-01-15] MEDS: Calcium Citrate/Vitamin D3 315 MG-250 Unit Tab PO SCH ×2 (08:22→18:08)
[2017-01-15] MEDS: Citalopram 20 MG Tab PO SCH (08:22)
[2017-01-15] MEDS: Lisinopril 5 MG Tab PO SCH (08:23)
[2017-01-15] MEDS: Docusate Sodium 100 MG Cap PO SCH ×2 (08:23→20:20)
[2017-01-15] MEDS: Multivitamins with Minerals/Iron/Folic Acid/Lycopene Tab PO SCH (08:23)
[2017-01-15] MEDS: guaiFENesin 600 MG Tab.ER PO SCH ×2 (08:23→20:20)
[2017-01-15] MEDS: buPROPion 150 MG Tab.SR PO SCH (08:24)
[2017-01-15] MEDS: Cholecalciferol (Vitamin D3) 1,000 Unit Tab PO SCH (08:24)
[2017-01-15] MEDS: Metoprolol Succinate 25 MG Tab.ER PO SCH (08:24)
[2017-01-15] MEDS: Oxybutynin 5 MG Tab PO SCH (20:21)
[2017-01-15] MEDS: Nortriptyline 25 MG Cap PO SCH (20:21)
[2017-01-15] MEDS: Donepezil 10 MG Tab PO SCH (20:22)
[2017-01-15] MEDS: Aspirin 325 MG Tab.EC PO SCH (20:22)
[2017-01-16] MEDS: Calcium Citrate/Vitamin D3 315 MG-250 Unit Tab PO SCH ×2 (07:47→17:41)
[2017-01-16] MEDS: Omeprazole 20 MG Cap.CR PO SCH (07:47)
[2017-01-16] MEDS: Citalopram 20 MG Tab PO SCH (08:29)
[2017-01-16] MEDS: guaiFENesin 600 MG Tab.ER PO SCH ×2 (08:30→20:24)
[2017-01-16] MEDS: Multivitamins with Minerals/Iron/Folic Acid/Lycopene Tab PO SCH (08:30)
[2017-01-16] MEDS: Docusate Sodium 100 MG Cap PO SCH ×2 (08:30→20:23)
[2017-01-16] MEDS: Lisinopril 5 MG Tab PO SCH (08:31)
[2017-01-16] MEDS: Cholecalciferol (Vitamin D3) 1,000 Unit Tab PO SCH (08:31)
[2017-01-16] MEDS: buPROPion 150 MG Tab.SR PO SCH (08:31)
[2017-01-16] MEDS: Metoprolol Succinate 25 MG Tab.ER PO SCH (08:32)
--- NOTE | 2017-01-16 08:51 | PCM.PN ---
- General Info Date of Service: 01/16/17 Admission Dx/Problem (Free Text): Weakness - Review of Systems Systems Review Comment:: Moose is seen today on swingbed rounds. She was admitted on 01/09/17 due to weakness after a stay for a respiratory illness. She feels ready to go home. She still has a hoarse voice but no other respiratory symptoms. She has been afebrile and labs are all stable. She did have a small pararenal retroperotineal hemorrhage after a fall at home that showed up on CT but her warfarin was discontinued and her hemoglobin has remained stable for nearly a week. We did discuss with her the risks and benefits of warfarin and she and her family decided to go with a full strength ASA for stroke prophylaxis. They stated her previous PCP had been leaning towards doing this as well. She has been passing her bowels. - Patient Data Vitals - Most Recent: Last Vital Signs Temp 97.0 F 01/16/17 07:00 Pulse 90 01/16/17 08:32 Resp 20 01/16/17 07:00 BP 145/68 H 01/16/17 08:32 Pulse Ox 96 01/16/17 07:00 Weight - Most Recent: 194 lb I&O - Last 24 Hours: Intake & Output 01/15/17 01/16/17 01/16/17 22:59 06:59 14:59 Intake Total 320 100 Balance 320 100 Lab Results Last 24 Hours: Laboratory Results - last 24 hr 01/16/17 01/16/17 Range/Units 07:20 07:20 WBC 6.6 (5.0-10.0) 10^3/uL RBC 3.07 L (3.80-5.50) 10^6/uL Hgb 9.2 L (12.0-16.0) g/dL Hct 27.6 L (37.0-47.0) % MCV 89.7 (82.0-92.0) fL MCH 30.0 (27.0-31.0) pg MCHC 33.4 (32.0-36.0) g/dL RDW 13.8 (11.5-14.5) % Plt Count 410 H (150-300) 10^3/uL MPV 7.2 L (7.4-10.4) fL Neut % (Auto) 69.8 (50.0-70.0) % Lymph % (Auto) 19.0 L (20.0-40.0) % Charlton % (Auto) 7.5 (2.0-8.0) % Eos % (Auto) 3.2 H (1.0-3.0) % Baso % (Auto) 0.5 (0.0-1.0) % Neut # (Auto) 4.6 (2.5-7.0) 10^3/uL Lymph # (Auto) 1.3 (1.0-4.0) 10^3/uL Charlton # (Auto) 0.5 (0.1-0.8) 10^3/uL Eos # (Auto) 0.2 (0.1-0.3) 10^3/uL Baso # (Auto) 0.0 (0.0-0.1) 10^3/uL Sodium 140 (136-145) mmol/L Potassium 4.5 (3.3-5.3) mmol/L Chloride 105 (98-115) mmol/L Carbon Dioxide 30.2 (21.0-32.0) mmol/L BUN 14 (6-25) mg/dL Creatinine 1.14 (0.51-1.17) mg/dL Est Cr Clr Drug Dosing 37.06 mL/min Estimated GFR (MDRD) 45 mL/min Glucose 89 (70-110) mg/dL Calcium 8.1 L (8.7-10.3) mg/dL Med Orders - Current: Current Medications Acetaminophen (Tylenol) 650 mg PO Q4H PRN PRN Reason: Pain Last Admin: 01/09/17 21:05 Dose: 650 mg Albuterol/Ipratropium (Duoneb 3.0-0.5 Mg/3 Ml) 3 ml NEB Q4HRRT PRN PRN Reason: Shortness of Breath Aspirin (Ecotrin) 325 mg PO BEDTIME [facility] Last Admin: 01/15/17 20:22 Dose: 325 mg Bisacodyl (Dulcolax) 10 mg PO DAILY PRN PRN Reason: Constipation Last Admin: 01/11/17 11:42 Dose: 10 mg Bupropion HCl (Wellbutrin Sr) 150 mg PO DAILY [facility] Last Admin: 01/16/17 08:31 Dose: 150 mg Calcium Citrate (Calcium Citrate + D) 1 tab PO BIDMEALS [facility] Last Admin: 01/16/17 07:47 Dose: 1 tab Cholecalciferol (Vitamin D3) 2,000 units PO DAILY [facility] Last Admin: 01/16/17 08:31 Dose: 2,000 units Citalopram Hydrobromide (Celexa) 30 mg PO DAILY [facility] Last Admin: 01/16/17 08:29 Dose: 30 mg Docusate Sodium (Colace) 100 mg PO BID [facility] Last Admin: 01/16/17 08:30 Dose: 100 mg Donepezil HCl (Aricept) 10 mg PO BEDTIME [facility] Last Admin: 01/15/17 20:22 Dose: 10 mg Guaifenesin (Mucinex) 600 mg PO BID [facility] Last Admin: 01/16/17 08:30 Dose: 600 mg Guaifenesin/Phenylephrine HCl (Robitussin Dm) 10 ml PO Q4H PRN PRN Reason: Cough Last Admin: 01/12/17 21:12 Dose: 10 ml Lisinopril (Prinivil) 2.5 mg PO DAILY [facility] Last Admin: 01/16/17 08:31 Dose: 2.5 mg Magnesium Hydroxide (Milk Of Magnesia) 30 ml PO DAILY PRN PRN Reason: Constipation Last Admin: 01/15/17 08:28 Dose: 15 ml Metoprolol Succinate (Toprol Xl) 25 mg PO DAILY [facility] Last Admin: 01/16/17 08:32 Dose: 25 mg Multivitamins/Minerals (Centrum) 1 tab PO DAILY [facility] Last Admin: 01/16/17 08:30 Dose: 1 tab Nortriptyline HCl (Nortriptyline) 100 mg PO BEDTIME [facility] Last Admin: 01/15/17 20:21 Dose: 100 mg Omeprazole (Omeprazole) 20 mg PO ACBREAKFAST [facility] Last Admin: 01/16/17 07:47 Dose: 20 mg Oxybutynin Chloride (Oxybutynin) 5 mg PO BEDTIME [facility] Last Admin: 01/15/17 20:21 Dose: 5 mg Discontinued Medications Aspirin (Aspirin) 81 mg PO BEDTIME [facility] Last Admin: 01/11/17 20:23 Dose: 81 mg Aspirin (Ecotrin) 325 mg PO WITHBREAKFAST [facility] Sodium Chloride (Normal Saline) 500 mls @ 75 mls/hr IV ASDIRECTED [facility] Stop: 01/10/17 17:00 Sodium Chloride (Normal Saline) 500 mls @ 75 mls/hr IV ASDIRECTED [facility] Stop: 01/10/17 20:30 Last Admin: 01/10/17 13:19 Dose: 75 mls/hr Iopamidol (Isovue-300 (61%)) 75 ml IV ONETIME ONE Stop: 01/10/17 13:12 Last Admin: 01/10/17 15:46 Dose: Not Given Ptom Nortriptyline 50mg Cap 2 each PO BEDTIME [facility] Last Admin: 01/09/17 21:07 Dose: 2 each Ptom Prednisone (20mg Tab) 2 each PO WITHBREAKFAST [facility] Stop: 01/10/17 10:01 Last Admin: 01/10/17 08:23 Dose: 2 each Sodium Chloride (Syrex Flush) 5 ml FLUSH Q8HR PRN PRN Reason: Keep Vein Open Last Admin: 01/09/17 21:04 Dose: 5 ml Sodium Chloride (Normal Saline) 50 ml FLUSH ASDIRECTED [facility] Stop: 01/10/17 14:00 Last Admin: 01/10/17 13:44 Dose: 50 ml Warfarin Sodium (Coumadin) 4 mg PO DAILY@1800 [facility] Last Admin: 01/09/17 17:47 Dose: 4 mg Warfarin Sodium (Coumadin) 0.5 mg PO Q48H [facility] Warfarin Sodium (Pharmacy To Dose - Warfarin) 0 dose PO ASDIRECTED [facility] Warfarin Sodium (Coumadin) 5 mg PO ONETIME ONE Stop: 01/10/17 09:01 Last Admin: 01/10/17 09:09 Dose: 5 mg - Exam General: Alert, Oriented, Cooperative, No Acute Distress Lungs: Clear to Auscultation, Normal Respiratory Effort Cardiovascular: Irregular Rhythm, Murmurs - Problem List & Annotations (1) Weakness SNOMED Code(s): 11935339 Code(s): R53.1 - WEAKNESS Status: Acute Current Visit: Yes (2) Anemia SNOMED Code(s): 173479901 Code(s): D64.9 - ANEMIA, UNSPECIFIED Status: Acute Current Visit: Yes (3) Atrial fibrillation SNOMED Code(s): 47752895 Code(s): I48.91 - UNSPECIFIED ATRIAL FIBRILLATION Status: Acute Current Visit: No (4) Hypertension SNOMED Code(s): 92407719 Code(s): I10 - ESSENTIAL (PRIMARY) HYPERTENSION Status: Acute Current Visit: No (5) Overactive bladder SNOMED Code(s): 349193403 Code(s): N32.81 - OVERACTIVE BLADDER Status: Acute Current Visit: No - Problem List Review Problem List Initiated/Reviewed/Updated: Yes - Assessment Assessment:: Weakness Anemia. Stable. HTN A-fib OAB Acute renal insufficiency. Resolved. - Plan Plan:: Weakness. Continue with PT. Anemia. Warfarin discontinued and she will continue on ASA 325 mg PO daily. HTN. Continue outpatient meds. A-fib. OAB. Continue outpatient meds. Acute renal insufficiency. Resolved. No longer requiring daily labs. Discharge dependent on PT eval and treat.
[2017-01-16] MEDS: Aspirin 325 MG Tab.EC PO SCH (20:23)
[2017-01-16] MEDS: Donepezil 10 MG Tab PO SCH (20:23)
[2017-01-16] MEDS: Nortriptyline 25 MG Cap PO SCH (20:24)
[2017-01-16] MEDS: Oxybutynin 5 MG Tab PO SCH (20:24)
[2017-01-17] MEDS: Omeprazole 20 MG Cap.CR PO SCH (07:58)
[2017-01-17] MEDS: Calcium Citrate/Vitamin D3 315 MG-250 Unit Tab PO SCH ×2 (08:46→18:21)
[2017-01-17] MEDS: Citalopram 20 MG Tab PO SCH (08:47)
[2017-01-17] MEDS: Docusate Sodium 100 MG Cap PO SCH ×2 (08:48→20:11)
[2017-01-17] MEDS: guaiFENesin 600 MG Tab.ER PO SCH ×2 (08:49→20:13)
[2017-01-17] MEDS: Lisinopril 5 MG Tab PO SCH (08:49)
[2017-01-17] MEDS: Multivitamins with Minerals/Iron/Folic Acid/Lycopene Tab PO SCH (08:50)
[2017-01-17] MEDS: Metoprolol Succinate 25 MG Tab.ER PO SCH (08:52)
[2017-01-17] MEDS: Cholecalciferol (Vitamin D3) 1,000 Unit Tab PO SCH (08:53)
[2017-01-17] MEDS: buPROPion 150 MG Tab.SR PO SCH (08:54)
[2017-01-17] MEDS: Aspirin 325 MG Tab.EC PO SCH (20:10)
[2017-01-17] MEDS: Oxybutynin 5 MG Tab PO SCH (20:10)
[2017-01-17] MEDS: Nortriptyline 25 MG Cap PO SCH (20:11)
[2017-01-17] MEDS: Donepezil 10 MG Tab PO SCH (20:11)
[2017-01-18] MEDS: Omeprazole 20 MG Cap.CR PO SCH (07:42)
[2017-01-18] MEDS: Calcium Citrate/Vitamin D3 315 MG-250 Unit Tab PO SCH ×2 (08:40→18:39)
[2017-01-18] MEDS: Citalopram 20 MG Tab PO SCH (08:40)
[2017-01-18] MEDS: Lisinopril 5 MG Tab PO SCH (08:41)
[2017-01-18] MEDS: Multivitamins with Minerals/Iron/Folic Acid/Lycopene Tab PO SCH (08:41)
[2017-01-18] MEDS: guaiFENesin 600 MG Tab.ER PO SCH ×2 (08:41→20:47)
[2017-01-18] MEDS: Docusate Sodium 100 MG Cap PO SCH ×2 (08:41→20:45)
[2017-01-18] MEDS: Metoprolol Succinate 25 MG Tab.ER PO SCH (08:41)
[2017-01-18] MEDS: buPROPion 150 MG Tab.SR PO SCH (08:42)
[2017-01-18] MEDS: Cholecalciferol (Vitamin D3) 1,000 Unit Tab PO SCH (08:42)
--- NOTE | 2017-01-18 13:30 | PCM.DCSUM1 ---
Discharge Summary - Hospital Course Free Text/Narrative:: Moose is discharged from swingbed on 01/19/17. She was admitted inpatient from 01/06/17 - 01/09/17 with clinical pneumonia, CXR negative. She as treated with antibiotics, which were discontinued when her WBC normalized, her CXR stayed negative and she clinically improved and was afebrile. She was in swingbed from 01/09/17 - 01/19/17 due to weakness and got skilled PT services. She did well and was ready for discharge to home with home health. Of note, she was noted to become increasingly anemic without any obvious course for bleeding. She negative fecal occult. CT abdomen pelvis was done with and without contrast and she was noted to have a small pararenal retroperitoneal hemorrhage. Warfarin was discontinued. Hemoglobin stabilized. She is on warfarin for a-fib. After discussion with Moose and her family Nicanor and Margo , we decided to discontinue warfarin and manage her with ASA 325 mg PO daily. This was her only medication change. She had a little renal insufficiency, which resolved with fluids. Moose needs home health due to the potential for re-hospitalization related to weakness and fall risk. 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 She would benefit from an in home therapy program as well as inhome safety assessment and strength and endurance training. She has decreased strength due to fatigue, weakness and congestive heart failure. She has SOB with minimal activities and her gait is unsteady. Home health services would be of great benefit to her and will be ordered at discharge. - Discharge Data Discharge Date: 01/19/17 Discharge Disposition: Home, W Home Health Agency 06 Condition: Good - Discharge Diagnosis/Problem(s) (1) Weakness SNOMED Code(s): 55960724 ICD Code: R53.1 - WEAKNESS Status: Acute Current Visit: Yes (2) Anemia SNOMED Code(s): 391754554 ICD Code: D64.9 - ANEMIA, UNSPECIFIED Status: Acute Current Visit: Yes (3) Atrial fibrillation SNOMED Code(s): 26581904 ICD Code: I48.91 - UNSPECIFIED ATRIAL FIBRILLATION Status: Acute Current Visit: No (4) Hypertension SNOMED Code(s): 40547908 ICD Code: I10 - ESSENTIAL (PRIMARY) HYPERTENSION Status: Acute Current Visit: No (5) Overactive bladder SNOMED Code(s): 823460232 ICD Code: N32.81 - OVERACTIVE BLADDER Status: Acute Current Visit: No - Patient Summary/Data Consults: Consultations 01/09/17 16:19 PT Evaluation and Treatment [CONS] Routine - Patient Instructions Diet: Regular Diet as Tolerated Activity: As Tolerated - Discharge Plan Home Medications: Home Meds Citalopram Hydrobromide [Citalopram HBr] 30 mg PO DAILY 05/15/14 [History] Oxybutynin 5 mg PO BEDTIME 05/15/14 [History] buPROPion HCl [Wellbutrin SR] 150 mg PO DAILY 05/15/14 [History] Acetaminophen [Tylenol] 650 mg PO Q4H PRN 09/05/15 [History] Calcium Carbonate/Vitamin D3 [Calcium 600-Vit D3 800 Caplet] 1 each PO BID 09/04 [History] Cholecalciferol (Vitamin D3) [Vitamin D3] 2,000 unit PO DAILY 09/05/15 [History] Docusate Sodium [Colace] 100 mg PO BID 09/05/15 [History] Multivitamin [Multivitamins] 1 each PO DAILY 09/05/15 [History] Omeprazole 20 mg PO DAILY 09/05/15 [History] Lisinopril [Prinivil] 2.5 mg PO DAILY 01/05/17 [History] Metoprolol Succinate 25 mg PO DAILY 01/05/17 [History] Nortriptyline HCl [Pamelor] 100 mg PO BEDTIME 01/05/17 [History] guaiFENesin [Mucinex] 600 mg PO BID 01/05/17 [History] Donepezil [Aricept] 10 mg PO BEDTIME 01/06/17 [History] Albuterol/Ipratropium [DuoNeb 3.0-0.5 MG/3 ML] 3 ml PO Q4H PRN 01/09/17 [History ] Magnesium Hydroxide [Milk of Magnesia] 30 ml PO DAILY PRN 01/09/17 [History] guaiFENesin [Robitussin] 10 ml PO Q4H PRN 01/09/17 [History] Aspirin [Ecotrin] 325 mg PO BEDTIME tab.ec 01/18/17 [Rx] - Discharge Summary/Plan Comment DC Time >30 min.: No - General Info Date of Service: 09/27/17 Admission Dx/Problem (Free Text: Weakness - Review of Systems Systems Review Comment: Moose is still a little hoarse but otherwise is feeling well with no concerns today. "I just want to go home". - Patient Data Vitals - Most Recent: Last Vital Signs Temp 97.9 F 01/18/17 06:57 Pulse 85 01/18/17 08:41 Resp 16 01/18/17 06:57 BP 140/77 01/18/17 08:41 Pulse Ox 99 01/18/17 06:57 Weight - Most Recent: 194 lb I&O - Last 24 hours: Intake & Output 01/17/17 01/18/17 01/18/17 22:59 06:59 14:59 Intake Total 470 100 Balance 470 100 Med Orders - Current: Current Medications Acetaminophen (Tylenol) 650 mg PO Q4H PRN PRN Reason: Pain Last Admin: 01/09/17 21:05 Dose: 650 mg Albuterol/Ipratropium (Duoneb 3.0-0.5 Mg/3 Ml) 3 ml NEB Q4HRRT PRN PRN Reason: Shortness of Breath Aspirin (Ecotrin) 325 mg PO BEDTIME [facility] Last Admin: 01/17/17 20:10 Dose: 325 mg Bisacodyl (Dulcolax) 10 mg PO DAILY PRN PRN Reason: Constipation Last Admin: 01/11/17 11:42 Dose: 10 mg Bupropion HCl (Wellbutrin Sr) 150 mg PO DAILY [facility] Last Admin: 01/18/17 08:42 Dose: 150 mg Calcium Citrate (Calcium Citrate + D) 1 tab PO BIDMEALS [facility] Last Admin: 01/18/17 08:40 Dose: 1 tab Cholecalciferol (Vitamin D3) 2,000 units PO DAILY [facility] Last Admin: 01/18/17 08:42 Dose: 2,000 units Citalopram Hydrobromide (Celexa) 30 mg PO DAILY [facility] Last Admin: 01/18/17 08:40 Dose: 30 mg Docusate Sodium (Colace) 100 mg PO BID [facility] Last Admin: 01/18/17 08:41 Dose: 100 mg Donepezil HCl (Aricept) 10 mg PO BEDTIME [facility] Last Admin: 01/17/17 20:11 Dose: 10 mg Guaifenesin (Mucinex) 600 mg PO BID [facility] Last Admin: 01/18/17 08:41 Dose: 600 mg Guaifenesin/Phenylephrine HCl (Robitussin Dm) 10 ml PO Q4H PRN PRN Reason: Cough Last Admin: 01/12/17 21:12 Dose: 10 ml Lisinopril (Prinivil) 2.5 mg PO DAILY [facility] Last Admin: 01/18/17 08:41 Dose: 2.5 mg Magnesium Hydroxide (Milk Of Magnesia) 30 ml PO DAILY PRN PRN Reason: Constipation Last Admin: 01/15/17 08:28 Dose: 15 ml Metoprolol Succinate (Toprol Xl) 25 mg PO DAILY [facility] Last Admin: 01/18/17 08:41 Dose: 25 mg Multivitamins/Minerals (Centrum) 1 tab PO DAILY [facility] Last Admin: 01/18/17 08:41 Dose: 1 tab Nortriptyline HCl (Nortriptyline) 100 mg PO BEDTIME [facility] Last Admin: 01/17/17 20:11 Dose: 100 mg Omeprazole (Omeprazole) 20 mg PO ACBREAKFAST [facility] Last Admin: 01/18/17 07:42 Dose: 20 mg Oxybutynin Chloride (Oxybutynin) 5 mg PO BEDTIME [facility] Last Admin: 01/17/17 20:10 Dose: 5 mg Discontinued Medications Aspirin (Aspirin) 81 mg PO BEDTIME [facility] Last Admin: 01/11/17 20:23 Dose: 81 mg Aspirin (Ecotrin) 325 mg PO WITHBREAKFAST [facility] Last Admin: 01/17/17 07:58 Dose: Not Given Sodium Chloride (Normal Saline) 500 mls @ 75 mls/hr IV ASDIRECTED [facility] Stop: 01/10/17 17:00 Sodium Chloride (Normal Saline) 500 mls @ 75 mls/hr IV ASDIRECTED [facility] Stop: 01/10/17 20:30 Last Admin: 01/10/17 13:19 Dose: 75 mls/hr Iopamidol (Isovue-300 (61%)) 75 ml IV ONETIME ONE Stop: 01/10/17 13:12 Last Admin: 01/10/17 15:46 Dose: Not Given Ptom Nortriptyline 50mg Cap 2 each PO BEDTIME [facility] Last Admin: 01/09/17 21:07 Dose: 2 each Ptom Prednisone (20mg Tab) 2 each PO WITHBREAKFAST [facility] Stop: 01/10/17 10:01 Last Admin: 01/10/17 08:23 Dose: 2 each Sodium Chloride (Syrex Flush) 5 ml FLUSH Q8HR PRN PRN Reason: Keep Vein Open Last Admin: 01/09/17 21:04 Dose: 5 ml Sodium Chloride (Normal Saline) 50 ml FLUSH ASDIRECTED [facility] Stop: 01/10/17 14:00 Last Admin: 01/10/17 13:44 Dose: 50 ml Warfarin Sodium (Coumadin) 4 mg PO DAILY@1800 [facility] Last Admin: 01/09/17 17:47 Dose: 4 mg Warfarin Sodium (Coumadin) 0.5 mg PO Q48H [facility] Warfarin Sodium (Pharmacy To Dose - Warfarin) 0 dose PO ASDIRECTED [facility] Warfarin Sodium (Coumadin) 5 mg PO ONETIME ONE Stop: 01/10/17 09:01 Last Admin: 01/10/17 09:09 Dose: 5 mg - Exam General: Reports: Alert, Oriented, Cooperative, No Acute Distress Lungs: Reports: Clear to Auscultation, Normal Respiratory Effort Cardiovascular: Reports: Irregular Rhythm, Murmurs *Q Meaningful Use (DIS) - VTE *Q VTE Criteria *Q: - Stroke *Q Stroke Criteria *Q: - AMI *Q AMI Criteria *Q:
[2017-01-18] MEDS: Acetaminophen 325 MG Tab PO PRN (20:44)
[2017-01-18] MEDS: Nortriptyline 25 MG Cap PO SCH (20:45)
[2017-01-18] MEDS: Oxybutynin 5 MG Tab PO SCH (20:45)
[2017-01-18] MEDS: Donepezil 10 MG Tab PO SCH (20:45)
[2017-01-18] MEDS: Aspirin 325 MG Tab.EC PO SCH (20:46)
[2017-01-19 06:26] VITALS: BP 169/73
[2017-01-19] MEDS: Omeprazole 20 MG Cap.CR PO SCH (07:47)
[2017-01-19] MEDS: Multivitamins with Minerals/Iron/Folic Acid/Lycopene Tab PO SCH (09:07)
[2017-01-19] MEDS: Citalopram 20 MG Tab PO SCH (09:07)
[2017-01-19] MEDS: guaiFENesin 600 MG Tab.ER PO SCH (09:07)
[2017-01-19] MEDS: Lisinopril 5 MG Tab PO SCH (09:07)
[2017-01-19] MEDS: Calcium Citrate/Vitamin D3 315 MG-250 Unit Tab PO SCH (09:07)
[2017-01-19] MEDS: Docusate Sodium 100 MG Cap PO SCH (09:07)
[2017-01-19] MEDS: buPROPion 150 MG Tab.SR PO SCH (09:08)
[2017-01-19] MEDS: Metoprolol Succinate 25 MG Tab.ER PO SCH (09:08)
[2017-01-19] MEDS: Cholecalciferol (Vitamin D3) 1,000 Unit Tab PO SCH (09:08)
== END 2017-01-19 09:20 | disposition home health service (06) | DRG 948 ==
LOC: KA.MS 16:24
PROVIDERS: ADMIT Internal Medicine; ATTEND Internal Medicine
DX: R53.1 Weakness (principal); D64.9 Anemia, unspecified; I48.91 Unspecified atrial fibrillation; I10 Essential (primary) hypertension; N32.81 Overactive bladder; Z91.81 History of falling; Z79.899 Other long term (current) drug therapy; Z79.01 Long term (current) use of anticoagulants
CPT/HCPCS: 36415; 71260; 74177; 80048; 82270; 82728; 83540; 83550; 85014; 85018; 85025; 85610; 97110-GP; 97162-GP; 97530-GP; A9270-GY; J7040; Q9967

== ENCOUNTER 2020-11-18 08:40 | Inpatient (IN) | payer MEDICARE, OTHER ==
--- NOTE | 2020-11-18 08:42 | EDM.PDOC ---
ED HPI GENERAL MEDICAL PROBLEM - General Chief Complaint: Back Pain or Injury Stated Complaint: FALL Time Seen by Provider: 11/18/20 08:41 Source of Information: Reports: Patient, EMS History Limitations: Reports: No Limitations - History of Present Illness INITIAL COMMENTS - FREE TEXT/NARRATIVE: Karen, 89-year-old female, presents by ambulance this morning after she experienced a loading type injury to her spine, when she lost her balance falling backwards landing on her buttocks. Had immediate mid thoracic pain, with excruciating pain on any attempted motion, or any inspiratory effort. States that she has dropped a tissue and was bending over to pick it up when she had a questionable dizziness secondary of position change. She then failed to gain balance and went backwards onto her buttocks. She denies any dizziness nor giddiness at this time. There is no other concerns, discomfort, or deformity noted. She has been virtually self-sufficient since her admission to the long-term care here in [place]. Onset: Today Duration: Minutes: Location: Reports: Back Quality: Reports: Pressure, Sharp Severity: Severe Improves with: Reports: None Worsens with: Reports: Breathing, Movement Context: Reports: Activity Associated Symptoms: Reports: No Other Symptoms Treatments [employer]: Reports: Other (see below) (All hme medications were taken this am.) Middle Back Pain Score (Numeric/FACES): 8 - Related Data Allergies Allergy/AdvReac Type Severity Reaction Status Date / Time Sulfa (Sulfonamide Allergy Cannot Verified 11/18/20 09:16 Antibiotics) Remember trimethoprim Allergy Cannot Verified 11/18/20 09:16 Remember Home Meds: Home Meds Citalopram Hydrobromide [Citalopram HBr] 30 mg PO DAILY 05/15/14 [History] Acetaminophen [Tylenol] 650 mg PO Q4H PRN 09/05/15 [History] Cholecalciferol (Vitamin D3) [Vitamin D3] 2,000 unit PO DAILY 09/05/15 [History] Omeprazole 20 mg PO DAILY 09/05/15 [History] Lisinopril [Prinivil] 2.5 mg PO DAILY 01/05/17 [History] Metoprolol Succinate 25 mg PO DAILY 01/05/17 [History] guaiFENesin [Mucinex] 600 mg PO DAILY 01/05/17 [History] Donepezil [Aricept] 10 mg PO BEDTIME 01/06/17 [History] Magnesium Hydroxide [Milk of Magnesia] 30 ml PO DAILY PRN 01/09/17 [History] Aspirin [Ecotrin] 325 mg PO BEDTIME tab.ec 01/18/17 [Rx] Acetaminophen 650 mg PO BID 11/18/20 [History] Darifenacin Hydrobromide [Darifenacin ER] 7.5 mg PO BEDTIME 11/18/20 [History] Fluticasone Propionate [Flonase] 1 spray INH BID 11/18/20 [History] Ibuprofen 600 mg PO Q6H PRN 11/18/20 [History] Montelukast [Singulair] 10 mg PO DAILY 11/18/20 [History] Nortriptyline 10 mg PO BEDTIME 11/18/20 [History] Pseudoephedrine HCl [Sinus 12 Hour] 120 mg PO DAILY 11/18/20 [History] Sennosides/Docusate Sodium [Senna-S 8.6-50 mg Tablet] 1 tab PO BID 11/18/20 [History] Sennosides/Docusate Sodium [Senna-S] 1 tab PO BID PRN 11/18/20 [History] buPROPion HCL [Bupropion HCl Sr] 150 mg PO DAILY 11/18/20 [History] Past Medical History HEENT History: Reports: Impaired Vision Cardiovascular History: Reports: Afib, Heart Failure, Hypertension Respiratory History: Reports: Pneumonia, Recurrent, SOB Gastrointestinal History: Reports: GERD Genitourinary History: Reports: UTI, Recurrent Musculoskeletal History: Reports: Arthritis, Fracture Neurological History: Reports: Migraines, Other (See Below) (Worsening memory issues) Psychiatric History: Reports: Depression Hematologic History: Reports: Anticoagulation Therapy, Blood Transfusion(s) Oncologic (Cancer) History: Reports: Lymphoma Other Oncologic History: non-hodgkins, in remission - Past Surgical History HEENT Surgical History: Reports: Cataract Surgery Respiratory Surgical History: Reports: None GI Surgical History: Reports: None Female Surgical History: Reports: Hysterectomy, Salpingo-Oophorectomy Musculoskeletal Surgical History: Reports: Hip Replacement Social & Family History - Family History Family Medical History: No Pertinent Family History - Tobacco Use Tobacco Use Status *Q: Never Tobacco User - Caffeine Use Caffeine Use: Reports: Coffee, Soda, Tea Other Caffeine Use: 1-2 cups of coffee per day. diet coke not every day. iced tea - Living Situation & Occupation Occupation: Retired ED ROS GENERAL - Review of Systems Review Of Systems: Comprehensive ROS is negative, except as noted in HPI. Constitutional: Reports: No Symptoms HEENT: Reports: No Symptoms Respiratory: Reports: No Symptoms Cardiovascular: Reports: No Symptoms Endocrine: Reports: No Symptoms GI/Abdominal: Reports: No Symptoms : Reports: No Symptoms Musculoskeletal: Reports: No Symptoms Skin: Reports: No Symptoms Neurological: Reports: Dizziness Psychiatric: Reports: No Symptoms Hematologic/Lymphatic: Reports: No Symptoms Immunologic: Reports: No Symptoms ED EXAM, GENERAL - Physical Exam Exam: See Below Free Text/Narrative:: Alert, oriented, in severe painful distress. HEENT is negative discharge or deformity. There is no tenderness to the head nor neck. Neck is soft supple no lymphadenopathy. She does experience pulling sensation and increased pain into her back with any positioning of the arms and/or deep breath. Thorax is seemingly clear but very limited auscultation secondary of poor inspiratory effort secondary of pain. I do not appreciate any wheezes nor crackles. Cardiac is regular I do not appreciate any murmur. Tenderness is noted to palpation at the mid thoracic region, lower aspect of the scapula region, with tenderness over 2 vertebral space region 6-7. This does not radiate outward. Bowel sounds are present no abdominal tenderness is noted. She denies any pelvic discomfort no tenderness to palpation. No tenderness to motion of the lower extremities. Skin is warm and dry trace edema with no restricted motion to the feet nor legs. Course - Vital Signs Last Recorded V/S: Last Vital Signs Temp 95.3 F L 11/18/20 08:51 Pulse 80 11/18/20 11:00 Resp 16 11/18/20 11:00 BP 150/75 H 11/18/20 11:00 Pulse Ox 90 L 11/18/20 11:00 - Orders/Labs/Meds Orders: Active Orders 24 hr Category Date Time Status Peripheral IV Care [RC] . DIRECTED Care 11/18/20 09:27 Active Sodium Chloride 0.9% [Saline Flush] Med 11/18/20 09:26 Active 10 ml FLUSH Q8HR PRN Peripheral IV Insertion Adult [OM.PC] Stat Oth 11/18/20 09:27 Ordered Medication Orders Hydrocodone Bitart/Acetaminophen (Acetaminophen/Hydrocodone 325-5 Mg Tab) 1 - 2 tab PO Q4H PRN PRN Reason: Pain (moderate 4-6) Last Admin: 11/18/20 12:04 Dose: 2 tab Documented by: VIKAS Hydromorphone HCl (Hydromorphone 1 Mg/Ml Syringe) 1 mg IVPUSH Q2H PRN PRN Reason: Pain (severe 7-10) Sodium Chloride (Sodium Chloride 0.9% 10 Ml Syringe) 10 ml FLUSH Q8HR PRN PRN Reason: keep vein open Last Admin: 11/18/20 09:45 Dose: 10 ml Documented by: Admin: 11/18/20 09:37 Dose: 10 ml Documented by: LOLA Labs: Laboratory Tests 11/18/20 11/18/20 11/18/20 Range/Units 09:40 09:40 10:30 WBC 6.58 (5.00-10.00) 10^3/uL RBC 4.67 (3.80-5.50) 10^6/uL Hgb 13.9 (12.0-16.0) g/dL Hct 42.4 (37.0-47.0) % MCV 90.8 (82.0-92.0) fL MCH 29.8 (27.0-31.0) pg MCHC 32.8 (32.0-36.0) g/dL RDW 11.7 (11.5-14.5) % Plt Count 268 (150-400) 10^3/uL MPV 9.3 (7.4-10.4) fL Immature Gran % (Auto) 0.6 (0.0-5.0) % Neut % (Auto) 74.7 H (50.0-70.0) % Lymph % (Auto) 14.6 L (20.0-40.0) % [place] % (Auto) 7.4 (2.0-8.0) % Eos % (Auto) 2.1 (1.0-3.0) % Baso % (Auto) 0.6 (0.0-1.0) % Neut # (Auto) 4.91 (2.50-7.00) 10^3/uL Lymph # (Auto) 0.96 L (1.00-4.00) 10^3/uL [place] # (Auto) 0.49 (0.10-0.80) 10^3/uL Eos # (Auto) 0.14 (0.10-0.30) 10^3/uL Baso # (Auto) 0.04 (0.00-0.10) 10^3/uL Immature Gran # (Auto) 0.04 (0.00-0.50) 10^3/uL Sodium 134 L (136-145) mmol/L Potassium 4.0 (3.5-5.1) mmol/L Chloride 98 (98-107) mmol/L Carbon Dioxide 28.5 (21.0-32.0) mmol/L Anion Gap 11.5 (5-15) mmol/L BUN 10 (7-18) mg/dL Creatinine 0.93 (0.51-1.17) mg/dL Est Cr Clr Drug Dosing 40.66 mL/min Estimated GFR (MDRD) 57 mL/min Glucose 97 (70-140) mg/dL Calcium 8.5 L (8.7-10.3) mg/dL Total Bilirubin 0.3 (0.2-1.0) mg/dL AST 19 (15-37) U/L ALT 16 (14-63) U/L Alkaline Phosphatase 79 (46-116) U/L Total Protein 6.6 (6.4-8.2) g/dL Albumin 3.50 (3.40-5.00) g/dL SARS CoV-2 RNA Rapid ALIRIO Negative (NEGATIVE) Meds: Medications Generic Name Dose Route Start Last Admin Trade Name Freq PRN Reason Stop Dose Admin Hydrocodone Bitart/Acetaminophen 1 - 2 tab 11/18/20 11:06 11/18/20 12:04 Acetaminophen/Hydrocodone 325-5 Mg Tab PO 2 tab Q4H PRN Administration Pain (moderate 4-6) Hydromorphone HCl 1 mg 11/18/20 11:08 Hydromorphone 1 Mg/Ml Syringe IVPUSH Q2H PRN Pain (severe 7-10) Sodium Chloride 10 ml 11/18/20 09:26 11/18/20 09:45 Sodium Chloride 0.9% 10 Ml Syringe FLUSH 10 ml Q8HR PRN Administration keep vein open Discontinued Medications Generic Name Dose Route Start Last Admin Trade Name Freq PRN Reason Stop Dose Admin Hydromorphone HCl 1 mg 11/18/20 09:27 11/18/20 09:37 Hydromorphone 1 Mg/Ml Syringe IVPUSH 11/18/20 09:28 1 mg ONETIME ONE Administration - Radiology Interpretation Free Text/Narrative:: CT shows significant arthritic changes with osteophytes/spurring and asymmetry of vertebral body height. Radiology over-read pending CT Results Date: 11/18/20 CT Results Time: 10:20 (Acute t-6 compression fracture) - Re-Assessments/Exams Free Text/Narrative Re-Assessment/Exam: 11/18/20 09:51 Pain improvement slight after hydromorphone. Rates 1 or 2 when lying still and not deep breathing. Still notes severe pain (9-10) with any attempted deep inspiration or any motion. Free Text/Narrative Re-Assessment/Exam: 11/18/20 10:58 Pain 1 while immobile, any deep breathing or motion increased pain Departure - Departure Time of Disposition: 10:57 Disposition: Admitted As Inpatient 68 Condition: Fair Clinical Impression: Intractable back pain Acute thoracic back pain Qualifiers: Back pain laterality: midline Qualified Code(s): M54.6 - Pain in thoracic spine Compression fracture of thoracic vertebra Qualifiers: Encounter type: initial encounter Thoracic vertebra fracture level: T6 Qualified Code(s): S22.050A - Wedge compression fracture of T5-T6 vertebra, initial encounter for closed fracture - Discharge Information *PRESCRIPTION DRUG MONITORING PROGRAM REVIEWED*: Not Applicable *COPY OF PRESCRIPTION DRUG MONITORING REPORT IN PATIENT ROSA: Not Applicable Sepsis Event Note (ED) - Focused Exam Vital Signs: Vital Signs Temp Pulse Resp BP Pulse Ox 11/18/20 11:00 80 16 150/75 H 90 L 11/18/20 10:30 75 16 166/81 H 90 L 11/18/20 09:30 74 18 164/81 H 90 L 11/18/20 08:51 95.3 F L 75 18 166/95 H 95 ED Communication - ED Communication Date/Time Date: 11/18/20 Time Called: 10:48 - Discussed Case With (1) Discussed Case With (1): Admitting Provider Person/s Notified (1): Gini Hedrick - Problem List & Annotations (1) Acute thoracic back pain SNOMED Code(s): 046766941 Code(s): M54.6 - PAIN IN THORACIC SPINE Status: Acute Priority: High Current Visit: Yes Qualifiers: Back pain laterality: midline Qualified Code(s): M54.6 - Pain in thoracic spine (2) Memory changes SNOMED Code(s): 067528454 Code(s): R41.3 - OTHER AMNESIA Status: Acute Priority: Medium Current Visit: Yes (3) Compression fracture of thoracic vertebra SNOMED Code(s): 197965886 Code(s): S22.000A - WEDGE COMPRESSION FRACTURE OF UNSP THORACIC VERTEBRA, INIT Status: Acute Priority: High Current Visit: Yes Qualifiers: Encounter type: initial encounter Thoracic vertebra fracture level: T6 Qualified Code(s): S22.050A - Wedge compression fracture of T5-T6 vertebra, initial encounter for closed fracture (4) Intractable back pain SNOMED Code(s): 460327142 Code(s): M54.9 - DORSALGIA, UNSPECIFIED Status: Acute Current Visit: Yes (5) COVID-19 ruled out by laboratory testing SNOMED Code(s): 897280336100628915, 380573511034331448 Code(s): Z20.822 - CONTACT WITH AND (SUSPECTED) EXPOSURE TO COVID-19 Status: Acute Current Visit: Yes - Problem List Review Problem List Initiated/Reviewed/Updated: Yes - My Orders Last 24 Hours: My Active Orders 11/18/20 09:26 Sodium Chloride 0.9% [Saline Flush] 10 ml FLUSH Q8HR PRN 11/18/20 09:27 Peripheral IV Care [RC] . DIRECTED Peripheral IV Insertion Adult [OM.PC] Stat - Assessment/Plan Admission H&P: Please use this note as an admission H&P Last 24 Hours: My Active Orders 11/18/20 09:26 Sodium Chloride 0.9% [Saline Flush] 10 ml FLUSH Q8HR PRN 11/18/20 09:27 Peripheral IV Care [RC] . DIRECTED Peripheral IV Insertion Adult [OM.PC] Stat Plan: Discussed with Dr Pandya for admission due to intractable pain.
[2020-11-18] MEDS ORDERED: HYDROmorphone 1 MG/ML Syringe IVPUSH ONE (09:27)
[2020-11-18] MEDS: Sodium Chloride 0.9% 10 ML Syringe FLUSH PRN ×3 (09:37→14:13)
--- NOTE | 2020-11-18 10:04 | CT ---
[id number] CT/CT Thoracic Spine WO IV Exam: CT Thoracic Spine WO IV Indication:FALL, PAIN. Comparison: CT examinations from 2017. Discussion: Multiple vertebral body compression fractures in the thoracic spine. Most recent imaging is from 2017. At that time there were compression fractures of T1, T8, and T11. Those fractures are similar to today's examination. T6 vertebral body fracture with moderate vertebral body height loss estimated at approximately 50%. Fracture was not present in 2017. Coronal series 8 image 23 demonstrates linear lucency in the subchondral region of the superior endplate at T6. Findings are consistent with an acute fracture. No evidence of burst morphology. Facet articulations remain intact. No other evidence of acute pathology in the thoracic spine. IMPRESSION: Acute T6 vertebral body compression fracture with 50% vertebral body height loss not seen previously. No radiographic evidence to suggest an unstable fracture. Other findings are described above. Jase Burrows MD 11/18/20 1003 Thank you for allowing us to participate in the care of your patient.
[2020-11-18 10:17] LABS: ANION GAP 11.5 mmol/L (5-15)
[2020-11-18] MEDS: Acetaminophen/HYDROcodone 325-5 MG Tab PO PRN (12:04)
[2020-11-18] MEDS: HYDROmorphone 1 MG/ML Syringe IVPUSH PRN ×3 (14:08→22:35)
[2020-11-18] MEDS ORDERED: Acetaminophen 325 MG Tab PO PRN (15:31)
[2020-11-18] MEDS ORDERED: Magnesium Hydroxide 400 MG/5 ML Susp 30 ML Cup PO PRN (15:31)
[2020-11-18] MEDS ORDERED: Vitamins A and D Oint 56.7 GM Tube TOP PRN (15:31)
[2020-11-18] MEDS ORDERED: SALICYLIC ACID TOP PRN (15:31)
[2020-11-18] MEDS ORDERED: Non-Formulary Medication 1 Each NASBOTH PRN (15:31)
[2020-11-18] MEDS: Enoxaparin 30 MG/0.3 ML Syringe SUBCUT SCH (16:08)
[2020-11-18] MEDS: NORTRIPTYLINE 10 MG PO SCH (20:36)
[2020-11-18] MEDS: Acetaminophen 325 MG Tab PO SCH (20:37)
[2020-11-18] MEDS: Aspirin 325 MG Tab.EC PO SCH (20:38)
[2020-11-18] MEDS: Fluticasone Propionate Nasal Spray 16 GM Bottle NASBOTH SCH (20:38)
[2020-11-18] MEDS: Montelukast 10 MG Tab PO SCH (20:38)
[2020-11-18] MEDS: Donepezil 10 MG Tab PO SCH (20:38)
[2020-11-18] MEDS: Trospium 20 MG Tab PO SCH (20:38)
[2020-11-19] MEDS: HYDROmorphone 1 MG/ML Syringe IVPUSH PRN (01:58)
[2020-11-19] MEDS: Acetaminophen/HYDROcodone 325-5 MG Tab PO PRN ×4 (04:32→18:01)
[2020-11-19] MEDS: Omeprazole 20 MG Cap.CR PO SCH (05:53)
[2020-11-19] MEDS: Fluticasone Propionate Nasal Spray 16 GM Bottle NASBOTH SCH ×2 (08:40→20:24)
[2020-11-19] MEDS: Citalopram 20 MG Tab PO SCH (08:40)
[2020-11-19] MEDS: Lisinopril 5 MG Tab PO SCH (08:42)
[2020-11-19] MEDS: Cholecalciferol (Vitamin D3) 25 MCG Tab PO SCH (08:43)
[2020-11-19] MEDS: buPROPion 150 MG Tab.ER PO SCH (08:43)
[2020-11-19] MEDS: Metoprolol Succinate 25 MG Tab.ER PO SCH (08:43)
[2020-11-19] MEDS: Trospium 20 MG Tab PO SCH ×2 (08:43→20:24)
[2020-11-19] MEDS: Acetaminophen 325 MG Tab PO SCH ×2 (08:44→20:23)
--- NOTE | 2020-11-19 09:02 | PCM.PN ---
- General Info Date of Service: 11/19/20 Admission Dx/Problem (Free Text): Chandrakant was admitted yesterday acute status secondary of an acute T6 compression fracture. She received IV Dilaudid in the emergency department secondary of severe pain rating a 9 on a scale of 10. She has been receiving oral hydrocodone 08/24/2024 2 tablets every 4 hours and IV Dilaudid for breakthrough pain. Functional Status: Reports: Tolerating Diet (Dietary intake has improved today), Urinating, Incentive Spirometry. Denies: Pain Controlled, Ambulating, New Symptoms - Review of Systems General: Reports: No Symptoms HEENT: Reports: No Symptoms Pulmonary: Reports: Pleuritic Chest Pain ( specifically to deep inspiration focu sing on the thoracic spine region). Denies: Shortness of Breath Cardiovascular: Reports: No Symptoms Gastrointestinal: Reports: No Symptoms Genitourinary: Reports: No Symptoms Musculoskeletal: Reports: Back Pain Skin: Reports: Pruritis ( has been noticed to the left wrist with no erythema noted. Coincides with the same area that her wrist bounds for allergies are placed likely just a contact irritation not an allergic reaction) Neurological: Reports: Other ( chronic memory loss but other than that no symptoms.) Psychiatric: Reports: No Symptoms - Patient Data Vitals - Most Recent: Last Vital Signs Temp 96.9 F 11/19/20 06:17 Pulse 94 11/19/20 08:43 Resp 16 11/19/20 06:17 BP 107/56 L 11/19/20 08:43 Pulse Ox 99 11/19/20 06:17 Weight - Most Recent: 183 lb 1.6 oz I&O - Last 24 Hours: Intake & Output 11/18/20 11/19/20 11/19/20 22:59 06:59 14:59 Intake Total 130 300 Output Total 30 Balance 130 270 Lab Results Last 24 Hours: Laboratory Results - last 24 hr 11/18/20 11/18/20 11/18/20 Range/Units 09:40 09:40 10:30 WBC 6.58 (5.00-10.00) 10^3/uL RBC 4.67 (3.80-5.50) 10^6/uL Hgb 13.9 (12.0-16.0) g/dL Hct 42.4 (37.0-47.0) % MCV 90.8 (82.0-92.0) fL MCH 29.8 (27.0-31.0) pg MCHC 32.8 (32.0-36.0) g/dL RDW 11.7 (11.5-14.5) % Plt Count 268 (150-400) 10^3/uL MPV 9.3 (7.4-10.4) fL Immature Gran % (Auto) 0.6 (0.0-5.0) % Neut % (Auto) 74.7 H (50.0-70.0) % Lymph % (Auto) 14.6 L (20.0-40.0) % Gilchrist % (Auto) 7.4 (2.0-8.0) % Eos % (Auto) 2.1 (1.0-3.0) % Baso % (Auto) 0.6 (0.0-1.0) % Neut # (Auto) 4.91 (2.50-7.00) 10^3/uL Lymph # (Auto) 0.96 L (1.00-4.00) 10^3/uL [place] # (Auto) 0.49 (0.10-0.80) 10^3/uL Eos # (Auto) 0.14 (0.10-0.30) 10^3/uL Baso # (Auto) 0.04 (0.00-0.10) 10^3/uL Immature Gran # (Auto) 0.04 (0.00-0.50) 10^3/uL Sodium 134 L (136-145) mmol/L Potassium 4.0 (3.5-5.1) mmol/L Chloride 98 (98-107) mmol/L Carbon Dioxide 28.5 (21.0-32.0) mmol/L Anion Gap 11.5 (5-15) mmol/L BUN 10 (7-18) mg/dL Creatinine 0.93 (0.51-1.17) mg/dL Est Cr Clr Drug Dosing 40.66 mL/min Estimated GFR (MDRD) 57 mL/min Glucose 97 (70-140) mg/dL Calcium 8.5 L (8.7-10.3) mg/dL Total Bilirubin 0.3 (0.2-1.0) mg/dL AST 19 (15-37) U/L ALT 16 (14-63) U/L Alkaline Phosphatase 79 (46-116) U/L Total Protein 6.6 (6.4-8.2) g/dL Albumin 3.50 (3.40-5.00) g/dL SARS CoV-2 RNA Rapid ALIRIO Negative (NEGATIVE) Med Orders - Current: Current Medications Acetaminophen (Acetaminophen 325 Mg Tab) 650 mg PO BID [facility] Last Admin: 11/19/20 08:44 Dose: 650 mg Documented by: Acetaminophen (Acetaminophen 325 Mg Tab) 650 mg PO Q4H PRN PRN Reason: Pain Hydrocodone Bitart/Acetaminophen (Acetaminophen/Hydrocodone 325-5 Mg Tab) 1 - 2 tab PO Q4H PRN PRN Reason: Pain (moderate 4-6) Last Admin: 11/19/20 07:55 Dose: 2 tab Documented by: Aspirin (Aspirin 325 Mg Tab.Ec) 325 mg PO BEDTIME [facility] Last Admin: 11/18/20 20:38 Dose: 325 mg Documented by: Bupropion HCl (Bupropion 150 Mg Tab.Er) 150 mg PO DAILY [facility] Last Admin: 11/19/20 08:43 Dose: 150 mg Documented by: Cholecalciferol (Cholecalciferol (Vitamin D3) 25 Mcg Tab) 50 mcg PO DAILY [facility] Last Admin: 11/19/20 08:43 Dose: 50 mcg Documented by: Citalopram Hydrobromide (Citalopram 20 Mg Tab) 30 mg PO DAILY [facility] Last Admin: 11/19/20 08:40 Dose: 30 mg Documented by: Donepezil HCl (Donepezil 10 Mg Tab) 10 mg PO BEDTIME [facility] Last Admin: 11/18/20 20:38 Dose: 10 mg Documented by: Enoxaparin Sodium (Enoxaparin 30 Mg/0.3 Ml Syringe) 30 mg SUBCUT Q24H [facility] Last Admin: 11/18/20 16:08 Dose: 30 mg Documented by: Fluticasone Propionate (Fluticasone Propionate Nasal [place] 16 Gm Bottle) 0 gm NASBOTH BID [facility] Last Admin: 11/19/20 08:40 Dose: 2 spray Documented by: Guaifenesin (Guaifenesin 600 Mg Tab.Er) 600 mg PO DAILY@1200 [facility] Hydromorphone HCl (Hydromorphone 1 Mg/Ml Syringe) 1 mg IVPUSH Q2H PRN PRN Reason: Pain (severe 7-10) Last Admin: 11/19/20 01:58 Dose: 1 mg Documented by: Ibuprofen (Ibuprofen 200 Mg Tab) 600 mg PO Q6H PRN PRN Reason: Pain Lisinopril (Lisinopril 5 Mg Tab) 2.5 mg PO DAILY [facility] Last Admin: 11/19/20 08:42 Dose: 2.5 mg Documented by: Magnesium Hydroxide (Magnesium Hydroxide 400 Mg/5 Ml Susp 30 Ml Cup) 30 ml PO DAILY PRN PRN Reason: Constipation Metoprolol Succinate (Metoprolol Succinate 25 Mg Tab.Er) 25 mg PO DAILY [facility] Last Admin: 11/19/20 08:43 Dose: 25 mg Documented by: Montelukast Sodium (Montelukast 10 Mg Tab) 10 mg PO BEDTIME [facility] Last Admin: 11/18/20 20:38 Dose: 10 mg Documented by: (Nortriptyline [ Nortriptyline] 10 Mg Cap) 10 mg PO BEDTIME [facility] Last Admin: 11/18/20 20:36 Dose: 10 mg Documented by: (Pseudoephedrine Hcl [Sinus 12 Hour] 120 Mg Tablet.Er) 120 mg PO DAILY@1200 [facility] Omeprazole (Omeprazole 20 Mg Cap.Cr) 20 mg PO DAILY@0630 [facility] Last Admin: 11/19/20 05:53 Dose: 20 mg Documented by: Senna/Docusate Sodium (Docusate Sodium/Sennosides 50-8.6 Mg Tab) 1 tab PO BID PRN PRN Reason: Constipation Senna/Docusate Sodium (Docusate Sodium/Sennosides 50-8.6 Mg Tab) 1 tab PO BID [facility] Last Admin: 11/19/20 08:43 Dose: 1 tab Documented by: Sodium Chloride (Sodium Chloride 0.9% 10 Ml Syringe) 10 ml FLUSH Q8HR PRN PRN Reason: keep vein open Last Admin: 11/18/20 14:13 Dose: 10 ml Documented by: Trospium (Trospium 20 Mg Tab) 20 mg PO BID [facility] Last Admin: 11/19/20 08:43 Dose: 20 mg Documented by: Vitamin A/Vitamin D (Vitamins A And D Oint 56.7 Gm Tube) 0 gm TOP BID PRN PRN Reason: heather Discontinued Medications Hydromorphone HCl (Hydromorphone 1 Mg/Ml Syringe) 1 mg IVPUSH ONETIME ONE Stop: 11/18/20 09:28 Last Admin: 11/18/20 09:37 Dose: 1 mg Documented by: - Exam General: Alert, Oriented, Cooperative, Mild Distress ( As long as limited motion) HEENT: Pupils Equal, Pupils Reactive, EOMI, Mucous Membr. Moist/[place] Neck: Supple Lungs: Clear to Auscultation, Normal Respiratory Effort, Decreased Breath Sounds ( to her bases but she is using incentive spirometry) Cardiovascular: Regular Rate, Regular Rhythm GI/Abdominal Exam: Normal Bowel Sounds, Soft, Non-Tender (Female) Exam: Deferred Extremities: Normal Inspection, No Pedal Edema, Normal Capillary Refill, Other ( cool to touch) Skin: Dry, Intact, Cool Neurological: No New Focal Deficit Psy/Mental Status: Alert, Normal Affect, Normal Mood - Patient Data Lab Results Last 24 hrs: Laboratory Results - last 24 hr 11/18/20 11/18/20 11/18/20 Range/Units 09:40 09:40 10:30 WBC 6.58 (5.00-10.00) 10^3/uL RBC 4.67 (3.80-5.50) 10^6/uL Hgb 13.9 (12.0-16.0) g/dL Hct 42.4 (37.0-47.0) % MCV 90.8 (82.0-92.0) fL MCH 29.8 (27.0-31.0) pg MCHC 32.8 (32.0-36.0) g/dL RDW 11.7 (11.5-14.5) % Plt Count 268 (150-400) 10^3/uL MPV 9.3 (7.4-10.4) fL Immature Gran % (Auto) 0.6 (0.0-5.0) % Neut % (Auto) 74.7 H (50.0-70.0) % Lymph % (Auto) 14.6 L (20.0-40.0) % Gilchrist % (Auto) 7.4 (2.0-8.0) % Eos % (Auto) 2.1 (1.0-3.0) % Baso % (Auto) 0.6 (0.0-1.0) % Neut # (Auto) 4.91 (2.50-7.00) 10^3/uL Lymph # (Auto) 0.96 L (1.00-4.00) 10^3/uL Gilchrist # (Auto) 0.49 (0.10-0.80) 10^3/uL Eos # (Auto) 0.14 (0.10-0.30) 10^3/uL Baso # (Auto) 0.04 (0.00-0.10) 10^3/uL Immature Gran # (Auto) 0.04 (0.00-0.50) 10^3/uL Sodium 134 L (136-145) mmol/L Potassium 4.0 (3.5-5.1) mmol/L Chloride 98 (98-107) mmol/L Carbon Dioxide 28.5 (21.0-32.0) mmol/L Anion Gap 11.5 (5-15) mmol/L BUN 10 (7-18) mg/dL Creatinine 0.93 (0.51-1.17) mg/dL Est Cr Clr Drug Dosing 40.66 mL/min Estimated GFR (MDRD) 57 mL/min Glucose 97 (70-140) mg/dL Calcium 8.5 L (8.7-10.3) mg/dL Total Bilirubin 0.3 (0.2-1.0) mg/dL AST 19 (15-37) U/L ALT 16 (14-63) U/L Alkaline Phosphatase 79 (46-116) U/L Total Protein 6.6 (6.4-8.2) g/dL Albumin 3.50 (3.40-5.00) g/dL SARS CoV-2 RNA Rapid ALIRIO Negative (NEGATIVE) Result Diagrams: 11/18/20 09:40 11/18/20 09:40 Sepsis Event Note - Evaluation Sepsis Screening Result: No Definite Risk - Focused Exam Vital Signs: Vital Signs Temp Pulse Pulse Resp BP BP Pulse Ox 11/19/20 08:43 94 107/56 L 11/19/20 08:42 107/56 L 11/19/20 06:17 96.9 F 94 16 107/56 L 99 11/19/20 03:00 96.7 F L 88 16 128/72 92 L 11/18/20 22:33 96.4 F L 67 16 130/54 L 97 - Problem List & Annotations (1) Acute thoracic back pain SNOMED Code(s): 923944939 Code(s): M54.6 - PAIN IN THORACIC SPINE Status: Acute Priority: High Current Visit: Yes Qualifiers: Back pain laterality: midline Qualified Code(s): M54.6 - Pain in thoracic spine (2) Memory changes SNOMED Code(s): 022122304 Code(s): R41.3 - OTHER AMNESIA Status: Acute Priority: Medium Current Visit: Yes (3) Compression fracture of thoracic vertebra SNOMED Code(s): 778142169 Code(s): S22.000A - WEDGE COMPRESSION FRACTURE OF UNSP THORACIC VERTEBRA, INIT Status: Acute Priority: High Current Visit: Yes Qualifiers: Encounter type: initial encounter Thoracic vertebra fracture level: T6 Qualified Code(s): S22.050A - Wedge compression fracture of T5-T6 vertebra, initial encounter for closed fracture (4) Intractable back pain SNOMED Code(s): 677990937 Code(s): M54.9 - DORSALGIA, UNSPECIFIED Status: Acute Current Visit: Yes (5) COVID-19 ruled out by laboratory testing SNOMED Code(s): 062994287350872278, 675829338481070965 Code(s): Z20.822 - CONTACT WITH AND (SUSPECTED) EXPOSURE TO COVID-19 St [facility]: Acute Current Visit: Yes - Problem List Review Problem List Initiated/Reviewed/Updated: Yes - My Orders Last 24 Hours: My Active Orders 11/18/20 09:26 Sodium Chloride 0.9% [Saline Flush] 10 ml FLUSH Q8HR PRN 11/18/20 09:27 Peripheral IV Care [RC] 21 Peripheral IV Insertion Adult [OM.PC] Stat 11/18/20 11:04 Patient Status [ADT] Routine 11/18/20 11:06 Acetaminophen/HYDROcodone [[place] 325-5 MG] 1 - 2 tab PO Q4H PRN Code Status [Resuscitation Status] Stat 11/18/20 11:08 HYDROmorphone [Dilaudid] 1 mg IVPUSH Q2H PRN 11/18/20 11:15 RT Incentive Spirometry [RC] Q1HWA 11/19/20 02:58 Consult to Case Management/Plant Changer [CONS] Routine - Plan Plan:: We will have a PT-OT consult for maintenance of strength although she is limited with her mobility and positioning at this time. Per daughter's request will have Damir Perez speak with them about qualifiers and payers obligation. We will continue with oral hydrocodone and IV hydromorphone for any breakthrough pain. 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 We will continue to monitor stool pattern to avoid constipation.
[2020-11-19] MEDS: guaiFENesin 600 MG Tab.ER PO SCH (12:10)
[2020-11-19] MEDS: Enoxaparin 30 MG/0.3 ML Syringe SUBCUT SCH (15:08)
[2020-11-19] MEDS ORDERED: SALICYLIC ACID TOP SCH (15:31)
[2020-11-19] MEDS: Ibuprofen 200 MG Tab PO PRN (19:07)
[2020-11-19] MEDS: Aspirin 325 MG Tab.EC PO SCH (20:23)
[2020-11-19] MEDS: Donepezil 10 MG Tab PO SCH (20:24)
[2020-11-19] MEDS: Montelukast 10 MG Tab PO SCH (20:24)
[2020-11-19] MEDS: NORTRIPTYLINE 10 MG PO SCH (20:24)
[2020-11-20] MEDS: Acetaminophen/HYDROcodone 325-5 MG Tab PO PRN ×5 (00:49→23:16)
[2020-11-20] MEDS: Ibuprofen 200 MG Tab PO PRN ×2 (02:46→11:26)
[2020-11-20] MEDS: Omeprazole 20 MG Cap.CR PO SCH (05:58)
[2020-11-20] MEDS: Cholecalciferol (Vitamin D3) 25 MCG Tab PO SCH (08:08)
[2020-11-20] MEDS: Citalopram 20 MG Tab PO SCH (08:09)
[2020-11-20] MEDS: buPROPion 150 MG Tab.ER PO SCH (08:09)
[2020-11-20] MEDS: Trospium 20 MG Tab PO SCH ×2 (08:09→20:16)
[2020-11-20] MEDS: Lisinopril 5 MG Tab PO SCH (08:10)
[2020-11-20] MEDS: Metoprolol Succinate 25 MG Tab.ER PO SCH (08:10)
[2020-11-20] MEDS: Acetaminophen 325 MG Tab PO SCH ×2 (08:12→20:17)
[2020-11-20] MEDS: Fluticasone Propionate Nasal Spray 16 GM Bottle NASBOTH SCH ×2 (08:15→20:16)
[2020-11-20] MEDS: guaiFENesin 600 MG Tab.ER PO SCH (11:26)
--- NOTE | 2020-11-20 11:59 | PCM.PN ---
- General Info Date of Service: 11/20/20 Admission Dx/Problem (Free Text): Acute T6 compression fracture with associated pain. - Review of Systems Systems Review Comment:: Moose is seen today on inpatient rounds. She was admitted on 11/18 through the ER after a fall in [facility] room [facility]. 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 X-ray and CT spine were done showing old T1, T8 and T11 fractures with acute T6 fracture. She was having a significant amount of pain and required IV hydromorphone for pain control. She was also started on hydrocodone/APAP 5/325 mg tabs to take 2 q 4 hours PRN pain. She received hydrocodone 2 tabs at midnight last evening and again at 5:58AM today and hydromorphone 1 mg IV at 1:58AM today. She states her pain is very tolerable at rest but movement is the worst and she has some pain with deep inspiration. She is doing incentive spirometry. She normally sleeps in a recliner at the [facility] and this is what she is currently doing in the hospital. She denies nausea. Her appetite has improved. She is feeling constipated. This was a new issue for her prior to her fall and she was recently started on Senna-S 1 tab PO BID scheduled and 1 time PRN. She has not had a BM since 11/17 per nursing. She has no questions today on rounds. She would like to go back to the [facility] as soon as she is able. - Patient Data Vitals - Most Recent: Last Vital Signs Temp 97.8 F 11/20/20 11:00 Pulse 88 11/20/20 11:00 Resp 16 11/20/20 11:00 BP 123/61 11/20/20 11:00 Pulse Ox 95 11/20/20 11:00 Weight - Most Recent: 183 lb 1.6 oz I&O - Last 24 Hours: Intake & Output 11/19/20 11/20/20 11/20/20 22:59 06:59 14:59 Intake Total 200 150 Balance 200 150 Med Orders - Current: Current Medications Acetaminophen (Acetaminophen 325 Mg Tab) 650 mg PO BID [facility] Last Admin: 11/20/20 08:12 Dose: 650 mg Documented by: Acetaminophen (Acetaminophen 325 Mg Tab) 650 mg PO Q4H PRN PRN Reason: Pain Hydrocodone Bitart/Acetaminophen (Acetaminophen/Hydrocodone 325-5 Mg Tab) 2 tab PO Q4H PRN PRN Reason: Pain (moderate 4-6) Last Admin: 11/20/20 05:58 Dose: 2 tab Documented by: Aspirin (Aspirin 325 Mg Tab.Ec) 325 mg PO BEDTIME [facility] Last Admin: 11/19/20 20:23 Dose: 325 mg Documented by: Bupropion HCl (Bupropion 150 Mg Tab.Er) 150 mg PO DAILY [facility] Last Admin: 11/20/20 08:09 Dose: 150 mg Documented by: Cholecalciferol (Cholecalciferol (Vitamin D3) 25 Mcg Tab) 50 mcg PO DAILY [facility] Last Admin: 11/20/20 08:08 Dose: 50 mcg Documented by: Citalopram Hydrobromide (Citalopram 20 Mg Tab) 30 mg PO DAILY [facility] Last Admin: 11/20/20 08:09 Dose: 30 mg Documented by: Donepezil HCl (Donepezil 10 Mg Tab) 10 mg PO BEDTIME [facility] Last Admin: 11/19/20 20:24 Dose: 10 mg Documented by: Enoxaparin Sodium (Enoxaparin 30 Mg/0.3 Ml Syringe) 30 mg SUBCUT Q24H [facility] Last Admin: 11/19/20 15:08 Dose: 30 mg Documented by: Fluticasone Propionate (Fluticasone Propionate Nasal [place] 16 Gm Bottle) 0 gm NASBOTH BID [facility] Last Admin: 11/20/20 08:15 Dose: 1 spray Documented by: Guaifenesin (Guaifenesin 600 Mg Tab.Er) 600 mg PO DAILY@1200 [facility] Last Admin: 11/20/20 11:26 Dose: 600 mg Documented by: Hydromorphone HCl (Hydromorphone 1 Mg/Ml Syringe) 1 mg IVPUSH Q2H PRN PRN Reason: Pain (severe 7-10) Last Admin: 11/19/20 01:58 Dose: 1 mg Documented by: Ibuprofen (Ibuprofen 200 Mg Tab) 600 mg PO Q6H PRN PRN Reason: Pain Last Admin: 11/20/20 11:26 Dose: 600 mg Documented by: Lisinopril (Lisinopril 5 Mg Tab) 2.5 mg PO DAILY [facility] Last Admin: 11/20/20 08:10 Dose: 2.5 mg Documented by: Magnesium Hydroxide (Magnesium Hydroxide 400 Mg/5 Ml Susp 30 Ml Cup) 30 ml PO DAILY PRN PRN Reason: Constipation Last Admin: 11/20/20 11:28 Dose: 30 ml Documented by: Metoprolol Succinate (Metoprolol Succinate 25 Mg Tab.Er) 25 mg PO DAILY [facility] Last Admin: 11/20/20 08:10 Dose: 25 mg Documented by: Montelukast Sodium (Montelukast 10 Mg Tab) 10 mg PO BEDTIME [facility] Last Admin: 11/19/20 20:24 Dose: 10 mg Documented by: (Nortriptyline [ Nortriptyline] 10 Mg Cap) 10 mg PO BEDTIME [facility] Last Admin: 11/19/20 20:24 Dose: 10 mg Documented by: (Pseudoephedrine Hcl [Sinus 12 Hour] 120 Mg Tablet.Er) 120 mg PO DAILY@1200 [facility] Last Admin: 11/20/20 11:27 Dose: 120 mg Documented by: Omeprazole (Omeprazole 20 Mg Cap.Cr) 20 mg PO DAILY@0630 [facility] Last Admin: 11/20/20 05:58 Dose: 20 mg Documented by: Senna/Docusate Sodium (Docusate Sodium/Sennosides 50-8.6 Mg Tab) 1 tab PO BID PRN PRN Reason: Constipation Senna/Docusate Sodium (Docusate Sodium/Sennosides 50-8.6 Mg Tab) 1 tab PO BID [facility] Last Admin: 11/20/20 08:11 Dose: 1 tab Documented by: Sodium Chloride (Sodium Chloride 0.9% 10 Ml Syringe) 10 ml FLUSH Q8HR PRN PRN Reason: keep vein open Last Admin: 11/18/20 14:13 Dose: 10 ml Documented by: Trospium (Trospium 20 Mg Tab) 20 mg PO BID [facility] Last Admin: 11/20/20 08:09 Dose: 20 mg Documented by: Vitamin A/Vitamin D (Vitamins A And D Oint 56.7 Gm Tube) 0 gm TOP BID PRN PRN Reason: heather Discontinued Medications Hydrocodone Bitart/Acetaminophen (Acetaminophen/Hydrocodone 325-5 Mg Tab) 1 - 2 tab PO Q4H PRN PRN Reason: Pain (moderate 4-6) Last Admin: 11/19/20 07:55 Dose: 2 tab Documented by: Hydromorphone HCl (Hydromorphone 1 Mg/Ml Syringe) 1 mg IVPUSH ONETIME ONE Stop: 11/18/20 09:28 Last Admin: 11/18/20 09:37 Dose: 1 mg Documented by: - Exam General: Alert, Oriented, Cooperative, No Acute Distress Lungs: Normal Respiratory Effort, Crackles (Fine crackles bilateral lung bases.) Cardiovascular: Regular Rate, Regular Rhythm, Murmurs (2/6 systolic murmur) Extremities: No Pedal Edema - Patient Data Result Diagrams: 11/18/20 09:40 11/18/20 09:40 Sepsis Event Note - Evaluation Sepsis Screening Result: No Definite Risk - Focused Exam Vital Signs: Vital Signs Temp Pulse Pulse Resp BP BP Pulse Ox 11/20/20 11:00 97.8 F 88 16 123/61 95 11/20/20 08:10 93 105/65 11/20/20 06:08 96.7 F L 85 18 143/62 H 91 L 11/20/20 02:55 98.3 F 82 18 134/54 L 92 L - Problem List Review Problem List Initiated/Reviewed/Updated: Yes - My Orders Last 24 Hours: My Active Orders 11/19/20 12:00 Pseudoephedrine HCl [Sinus 12 Hour] 120 mg PO DAILY@1200 guaiFENesin [Mucinex] 600 mg PO DAILY@1200 - Assessment Assessment:: Acute Hospital Problems: Acute T6 vertebral fracture with associated pain - Hydromorphone 1 mg IV q 1 hour PRN pain - Hydrocodone/APAP 5/325 mg tabs 2 tabs PO q 4 hours PRN pain - Will attempt to not utilize the IV pain meds unless absolutely necessary in order to optimize for return to [facility] Chronic Problems: Depression - Buproprion XL 150 mg PO daily - Citalopram 30 mg PO daily - Nortriptyline 10 mg PO qhs Constipation - Senna-S 1 tab PO BID scheduled and 1 time PRN - MOM today (11/20) Cognitive impairment - Donepezil 10 mg PO daily Chronic Sinusitis - Flonase BID - Singulair 10 mg PO qhs - Mucinex 600 mg PO daily - Pseudoephedrine 120 mg PO daily HTN - Lisinopril 2.5 mg PO daily - Metoprolol XL 25 mg PO daily Acid Reflux - Omeprazole 20 mg PO daily OAB - Darifenacin 7.5 mg PO qhs DVT prophylaxis: Enoxaparin 30 mg subcut daily Son Nicanor updated about progress as he was present during the examination today Anticipate discharge in AM if able to get through next 24 hours without IV pain medication CODE STATUS: DNR/DNI
[2020-11-20] MEDS ORDERED: Bisacodyl 10 MG Supp RECTAL ONE (14:35)
[2020-11-20] MEDS: Enoxaparin 30 MG/0.3 ML Syringe SUBCUT SCH (15:01)
[2020-11-20] MEDS: Naloxegol Oxalate 25 MG Tab PO SCH (16:49)
[2020-11-20] MEDS: NORTRIPTYLINE 10 MG PO SCH (20:16)
[2020-11-20] MEDS: Montelukast 10 MG Tab PO SCH (20:16)
[2020-11-20] MEDS: Donepezil 10 MG Tab PO SCH (20:16)
[2020-11-20] MEDS: Aspirin 325 MG Tab.EC PO SCH (20:16)
[2020-11-21] MEDS: Ibuprofen 200 MG Tab PO PRN (02:32)
[2020-11-21] MEDS: Omeprazole 20 MG Cap.CR PO SCH (06:32)
[2020-11-21] MEDS: Naloxegol Oxalate 25 MG Tab PO SCH (06:32)
[2020-11-21] MEDS: Metoprolol Succinate 25 MG Tab.ER PO SCH (08:06)
[2020-11-21] MEDS: Trospium 20 MG Tab PO SCH (08:07)
[2020-11-21] MEDS: Lisinopril 5 MG Tab PO SCH (08:07)
[2020-11-21] MEDS: buPROPion 150 MG Tab.ER PO SCH (08:07)
[2020-11-21] MEDS: Citalopram 20 MG Tab PO SCH (08:08)
[2020-11-21] MEDS: Cholecalciferol (Vitamin D3) 25 MCG Tab PO SCH (08:09)
[2020-11-21] MEDS: Acetaminophen 325 MG Tab PO SCH (08:09)
[2020-11-21] MEDS: Fluticasone Propionate Nasal Spray 16 GM Bottle NASBOTH SCH (08:15)
--- NOTE | 2020-11-21 10:23 | PCM.DCSUM1 ---
Discharge Summary - Hospital Course Free Text/Narrative:: Admission Date: 11/18/2020 Discharge Date: 11/21/2020 Disposition: Return to SNF Admission Diagnoses: Acute T6 compression fracture after fall Pain associated to above Constipation Discharge Diagnoses and Plan: Acute T6 compression fracture after fall - Return to SNF - Activity up with assistance - PT/OT eval and treat at SNF - Incentive spirometry 1 hour while awake Pain associated to above - Hydrocodone 10/325 mg tabs, one tab PO q 4 hours PRN Pain (NEW, sent to pharmacy through outpatient chart) Constipation - Continue Senna-S BID scheduled and 1 time PRN - Movantik 12.5 mg PO daily while on opioid medication (NEW) Peripheral Edema/DVT prophylaxis - Compression stockings on during the day, off at night Chronic Problems: Depression - Buproprion XL 150 mg PO daily - Citalopram 30 mg PO daily - Nortriptyline 10 mg PO qhs Cognitive impairment - Donepezil 10 mg PO daily Chronic Sinusitis - Flonase BID - Singulair 10 mg PO qhs - Mucinex 600 mg PO daily - Pseudoephedrine 120 mg PO daily HTN - Lisinopril 2.5 mg PO daily - Metoprolol XL 25 mg PO daily Acid Reflux - Omeprazole 20 mg PO daily OAB - Darifenacin 7.5 mg PO qhs CODE STATUS: DNR/DNI New Medications: Hydrocodone 10/325 1 tab PO q 4 hours PRN pain Movantik 12.5 mg PO daily while on opioid therapy Hospital Course: She was admitted on 11/18 through the ER after a fall in her room at the OR. 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 X-ray and CT spine were done showing old T1, T8 and T11 fractures with acute T6 fracture. She was having a significant amount of pain and required IV hydromorphone for pain control. She was also st arted on hydrocodone/APAP 5/325 mg tabs to take 2 q 4 hours PRN pain. Her last dose of hydromorphone IV was 11/19 at 0158. She has received hydrocodone 5/325 mg tabs 2 tabs most recently at 5:58 on day of discharge. She had 3 doses on 11/20. She states her pain is very tolerable at rest but movement is the worst and she has some pain with deep inspiration. She has incentive spirometry in her room but has not been doing it. She normally sleeps in a recliner at the OR and this is what she is currently doing in the hospital. She denies nausea. Her appetite has improved. She was feeling constipated. This was a new issue for her prior to her fall and she was recently started on Senna-S 1 tab PO BID scheduled and 1 time PRN. She has not had a BM since 11/17 per nursing. On 11/20 she received a dulcolax suppository and MOM without results and then was started on Movantik 12.5 mg PO daily (renally dosed) and she now feels like she needs to have a bowel movement. Her son Nicanor was present during rounds today and nurse Dacia was informed of her discharge plan. Karen will stay through lunch and be discharged back to [facility] early this afternoon. Diagnosis: Stroke: No Modified [place] Scale: Mod.Disablility Requiring Some Help,Able to Walk Without Assistance Modified [place] Scale Score: 3 - Discharge Data Discharge Date: 11/21/20 Discharge Disposition: DC/Tfer to SNF 03 Condition: Good - Referral to Home Health Primary Care Physician: STEPHANIE Clark [facility] - Patient Summary/Data Consults: Consultations 11/19/20 02:58 Consult to Case Management/[employer] [CONS] Routine 11/19/20 09:08 PT Evaluation and Treatment [CONS] Routine 11/19/20 09:09 OT Evaluation and Treatment [CONS] Routine - Patient Instructions Diet: Regular Diet as Tolerated Activity, Other: Up with assistance - Discharge Plan *PRESCRIPTION DRUG MONITORING PROGRAM REVIEWED*: Not Applicable *COPY OF PRESCRIPTION DRUG MONITORING REPORT IN PATIENT ROSA: Not Applicable Prescriptions/Med Rec: Naloxegol Oxalate [Movantik] 12.5 mg PO ACBREAKFAST #30 tablet Home Medications: Home Meds Citalopram Hydrobromide [Citalopram HBr] 30 mg PO DAILY 05/15/14 [History] Acetaminophen [Tylenol] 650 mg PO Q4H PRN 09/05/15 [History] Cholecalciferol (Vitamin D3) [Vitamin D3] 2,000 unit PO DAILY@1200 09/05/15 [History] Omeprazole 20 mg PO DAILY@0630 09/05/15 [History] Lisinopril [Prinivil] 2.5 mg PO DAILY 01/05/17 [History] Metoprolol Succinate 25 mg PO DAILY 01/05/17 [History] guaiFENesin [Mucinex] 600 mg PO DAILY@1200 01/05/17 [History] Donepezil [Aricept] 10 mg PO BEDTIME 01/06/17 [History] Magnesium Hydroxide [Milk of Magnesia] 30 ml PO DAILY PRN 01/09/17 [History] Aspirin [Ecotrin] 325 mg PO BEDTIME tab.ec 01/18/17 [Rx] Acetaminophen 650 mg PO BID 11/18/20 [History] Darifenacin Hydrobromide [Darifenacin ER] 7.5 mg PO BEDTIME 11/18/20 [History] Fluticasone Propionate [Flonase] 1 spray INH BID 11/18/20 [History] Ibuprofen 600 mg PO Q6H PRN 11/18/20 [History] Montelukast [Singulair] 10 mg PO BEDTIME 11/18/20 [History] Non-Formulary Medication [NF Drug] 1 each NASBOTH DAILY PRN 11/18/20 [History] Nortriptyline 10 mg PO BEDTIME 11/18/20 [History] Pseudoephedrine HCl [Sinus 12 Hour] 120 mg PO DAILY@1200 11/18/20 [History] Salicylic Acid [Wart Remover] 1 patch TOP DAILY PRN 11/18/20 [History] Salicylic Acid [Wart Remover] 1 patch TOP TUTH 11/18/20 [History] Sennosides/Docusate Sodium [Senna-S 8.6-50 mg Tablet] 1 tab PO BID 11/18/20 [History] Sennosides/Docusate Sodium [Senna-S] 1 tab PO BID PRN 11/18/20 [History] Vits A and D/White Pet/Lanolin [A and D Ointment] 1 applic TOP BID PRN 11/18/20 [History] buPROPion HCL [Bupropion HCl Sr] 150 mg PO DAILY 11/18/20 [History] Naloxegol Oxalate [Movantik] 12.5 mg PO ACBREAKFAST #30 tablet 11/21/20 [Rx] Forms: ED Department Discharge Referrals: Clinic,[facility] [Primary Care Provider] - - Discharge Summary/Plan Comment DC Time >30 min.: No - General Info Date of Service: 11/21/20 Admission Dx/Problem (Free Text: Acute T6 compression fracture with associated pain. - Patient Data Vitals - Most Recent: Last Vital Signs Temp 96.6 F L 11/21/20 06:55 Pulse 89 11/21/20 08:06 Resp 18 11/21/20 06:55 BP 158/85 H 11/21/20 08:07 Pulse Ox 93 L 11/21/20 06:55 Weight - Most Recent: 183 lb 1.6 oz I&O - Last 24 hours: Intake & Output 11/20/20 11/21/20 11/21/20 22:59 06:59 14:59 Intake Total 150 100 Balance 150 100 Med Orders - Current: Current Medications Acetaminophen (Acetaminophen 325 Mg Tab) 650 mg PO BID [facility] Last Admin: 11/21/20 08:09 Dose: 650 mg Documented by: Acetaminophen (Acetaminophen 325 Mg Tab) 650 mg PO Q4H PRN PRN Reason: Pain Hydrocodone Bitart/Acetaminophen (Acetaminophen/Hydrocodone 325-5 Mg Tab) 2 tab PO Q4H PRN PRN Reason: Pain (moderate 4-6) Last Admin: 11/20/20 23:16 Dose: 2 tab Documented by: Aspirin (Aspirin 325 Mg Tab.Ec) 325 mg PO BEDTIME [facility] Last Admin: 11/20/20 20:16 Dose: 325 mg Documented by: Bupropion HCl (Bupropion 150 Mg Tab.Er) 150 mg PO DAILY [facility] Last Admin: 11/21/20 08:07 Dose: 150 mg Documented by: Cholecalciferol (Cholecalciferol (Vitamin D3) 25 Mcg Tab) 50 mcg PO DAILY [facility] Last Admin: 11/21/20 08:09 Dose: 50 mcg Documented by: Citalopram Hydrobromide (Citalopram 20 Mg Tab) 30 mg PO DAILY [facility] Last Admin: 11/21/20 08:08 Dose: 30 mg Documented by: Donepezil HCl (Donepezil 10 Mg Tab) 10 mg PO BEDTIME [facility] Last Admin: 11/20/20 20:16 Dose: 10 mg Documented by: Enoxaparin Sodium (Enoxaparin 30 Mg/0.3 Ml Syringe) 30 mg SUBCUT Q24H [facility] Last Admin: 11/20/20 15:01 Dose: 30 mg Documented by: Fluticasone Propionate (Fluticasone Propionate Nasal [place] 16 Gm Bottle) 0 gm NASBOTH BID [facility] Last Admin: 11/21/20 08:15 Dose: 1 spray Documented by: Guaifenesin (Guaifenesin 600 Mg Tab.Er) 600 mg PO DAILY@1200 [facility] Last Admin: 11/20/20 11:26 Dose: 600 mg Documented by: Hydromorphone HCl (Hydromorphone 1 Mg/Ml Syringe) 1 mg IVPUSH Q2H PRN PRN Reason: Pain (severe 7-10) Last Admin: 11/19/20 01:58 Dose: 1 mg Documented by: Ibuprofen (Ibuprofen 200 Mg Tab) 600 mg PO Q6H PRN PRN Reason: Pain Last Admin: 11/21/20 02:32 Dose: 600 mg Documented by: Lisinopril (Lisinopril 5 Mg Tab) 2.5 mg PO DAILY [facility] Last Admin: 11/21/20 08:07 Dose: 2.5 mg Documented by: Magnesium Hydroxide (Magnesium Hydroxide 400 Mg/5 Ml Susp 30 Ml Cup) 30 ml PO DAILY PRN PRN Reason: Constipation Last Admin: 11/20/20 11:28 Dose: 30 ml Documented by: Metoprolol Succinate (Metoprolol Succinate 25 Mg Tab.Er) 25 mg PO DAILY [facility] Last Admin: 11/21/20 08:06 Dose: 25 mg Documented by: Montelukast Sodium (Montelukast 10 Mg Tab) 10 mg PO BEDTIME [facility] Last Admin: 11/20/20 20:16 Dose: 10 mg Documented by: Naloxegol (Naloxegol Oxalate 25 Mg Tab) 12.5 mg PO ACBREAKFAST [facility] Last Admin: 11/21/20 06:32 Dose: 12.5 mg Documented by: (Nortriptyline [ Nortriptyline] 10 Mg Cap) 10 mg PO BEDTIME [facility] Last Admin: 11/20/20 20:16 Dose: 10 mg Documented by: (Pseudoephedrine Hcl [Sinus 12 Hour] 120 Mg Tablet.Er) 120 mg PO DAILY@1200 [facility] Last Admin: 11/20/20 11:27 Dose: 120 mg Documented by: Omeprazole (Omeprazole 20 Mg Cap.Cr) 20 mg PO DAILY@0630 [facility] Last Admin: 11/21/20 06:32 Dose: 20 mg Documented by: Senna/Docusate Sodium (Docusate Sodium/Sennosides 50-8.6 Mg Tab) 1 tab PO BID PRN PRN Reason: Constipation Senna/Docusate Sodium (Docusate Sodium/Sennosides 50-8.6 Mg Tab) 1 tab PO BID [facility] Last Admin: 11/21/20 08:08 Dose: 1 tab Documented by: Sodium Chloride (Sodium Chloride 0.9% 10 Ml Syringe) 10 ml FLUSH Q8HR PRN PRN Reason: keep vein open Last Admin: 11/18/20 14:13 Dose: 10 ml Documented by: Trospium (Trospium 20 Mg Tab) 20 mg PO BID [facility] Last Admin: 11/21/20 08:07 Dose: 20 mg Documented by: Vitamin A/Vitamin D (Vitamins A And D Oint 56.7 Gm Tube) 0 gm TOP BID PRN PRN Reason: heather Discontinued Medications Hydrocodone Bitart/Acetaminophen (Acetaminophen/Hydrocodone 325-5 Mg Tab) 1 - 2 tab PO Q4H PRN PRN Reason: Pain (moderate 4-6) Last Admin: 11/19/20 07:55 Dose: 2 tab Documented by: Bisacodyl (Bisacodyl 10 Mg Supp) 10 mg RECTAL ONETIME ONE Stop: 11/20/20 14:36 Last Admin: 11/20/20 15:01 Dose: 10 mg Documented by: Hydromorphone HCl (Hydromorphone 1 Mg/Ml Syringe) 1 mg IVPUSH ONETIME ONE Stop: 11/18/20 09:28 Last Admin: 11/18/20 09:37 Dose: 1 mg Documented by: - Exam General: Reports: Alert, Cooperative, No Acute Distress Lungs: Reports: Crackles (Bilateral lung bases) Cardiovascular: Reports: Regular Rate, Regular Rhythm, Murmurs (2/6 systolic murmur) GI/Abdominal Exam: Normal Bowel Sounds Extremities: Pedal Edema (Trace bilateral pedal edema)
[2020-11-21 10:39] VITALS: BP 131/60; PULSE 93
[2020-11-21] MEDS: guaiFENesin 600 MG Tab.ER PO SCH (11:00)
[2020-11-21] MEDS: Acetaminophen/HYDROcodone 325-5 MG Tab PO PRN (12:49)
== END 2020-11-21 14:10 | DRG 552 ==
LOC: KA.ED 08:40 → KA.MS 11:04
PROVIDERS: ADMIT Internal Medicine; ATTEND Internal Medicine
DX: S22.050A Wedge compression fracture of T5-T6 vertebra, initial encounter for closed fracture (principal); K59.00 Constipation, unspecified; R60.0 Localized edema; J32.9 Chronic sinusitis, unspecified; M54.6 Pain in thoracic spine; R41.3 Other amnesia; Z20.822 Contact with and (suspected) exposure to COVID-19; I50.9 Heart failure, unspecified; H54.7 Unspecified visual loss; I48.91 Unspecified atrial fibrillation; K21.9 Gastro-esophageal reflux disease without esophagitis; M19.90 Unspecified osteoarthritis, unspecified site; F32.9 Major depressive disorder, single episode, unspecified; I11.0 Hypertensive heart disease with heart failure; G43.909 Migraine, unspecified, not intractable, without status migrainosus; C85.90 Non-Hodgkin lymphoma, unspecified, unspecified site; Z66 Do not resuscitate; W19.XXXA Unspecified fall, initial encounter; Z96.649 Presence of unspecified artificial hip joint; Z88.2 Allergy status to sulfonamides; Z79.82 Long term (current) use of aspirin; Z88.1 Allergy status to other antibiotic agents; Z87.01 Personal history of pneumonia (recurrent); Z87.440 Personal history of urinary (tract) infections; Z79.01 Long term (current) use of anticoagulants; Z98.41 Cataract extraction status, right eye; Z88.8 Allergy status to other drugs, medicaments and biological substances; Z90.710 Acquired absence of both cervix and uterus; Z79.899 Other long term (current) drug therapy
CPT/HCPCS: 36415; 72128; 80053; 85025; 96374; 97161-GP; 99223; 99233; 99285-25; A9270-GY; J1170; J1650; U0002